=== PATIENT | female | born 1960 | race Caucasian/White ===

== ENCOUNTER → 2023-07-13 06:42 | Day surgery (SDC) | payer OTHER, SELFPAY | LOC: GI 06:42 | PROVIDERS: ATTENDING PHYSICIAN Specialist | DX: R19.7 Diarrhea, unspecified (principal); K57.30 Diverticulosis of large intestine without perforation or abscess without bleeding; D12.0 Benign neoplasm of cecum; D12.5 Benign neoplasm of sigmoid colon; D12.2 Benign neoplasm of ascending colon; D12.3 Benign neoplasm of transverse colon; Z98.0 Intestinal bypass and anastomosis status | CPT/HCPCS: 45385; 45380; 88305 ==

== ENCOUNTER → 2023-08-05 07:51 | Outpatient (REF) | payer OTHER, SELFPAY | LOC: HWRAD 07:51 | PROVIDERS: ATTENDING PHYSICIAN Advanced Practice Midwife; FAMILY PHYSICIAN Family Medicine | DX: N95.0 Postmenopausal bleeding (principal) | CPT/HCPCS: 76830; 76856 ==

== ENCOUNTER → 2023-09-27 07:18 | Outpatient (REF) | payer OTHER, SELFPAY | LOC: MRI 3T 07:18 | PROVIDERS: ATTENDING PHYSICIAN Advanced Practice Midwife; FAMILY PHYSICIAN Family Medicine | DX: N83.202 Unspecified ovarian cyst, left side (principal); R93.89 Abnormal findings on diagnostic imaging of other specified body structures | CPT/HCPCS: 72197; A9575 ==

== ENCOUNTER 2024-05-04 06:17 | Outpatient (RCR) | payer OTHER, SELFPAY | END 2024-05-04 23:59 | disposition home or self-care (01) | LOC: RPT 06:17 | PROVIDERS: ATTENDING PHYSICIAN Family Medicine | DX: M62.838 Other muscle spasm (principal); M76.31 Iliotibial band syndrome, right leg; M76.32 Iliotibial band syndrome, left leg; Z73.6 Limitation of activities due to disability; M54.2 Cervicalgia | CPT/HCPCS: 97010; 97110; 97112; 97140; 97162 ==

== ENCOUNTER 2024-08-09 06:15 | Day surgery (SDC) | payer OTHER, SELFPAY | END 2024-08-09 10:04 | disposition home or self-care (01) | LOC: GI 06:15 | PROVIDERS: ATTENDING PHYSICIAN Specialist | DX: R13.10 Dysphagia, unspecified (principal); R12 Heartburn; K22.70 Barrett's esophagus without dysplasia | CPT/HCPCS: 43239; 88305 ==

== ENCOUNTER 2024-08-14 11:01 | Emergency (ER) | payer OTHER, SELFPAY ==
[2024-08-14 11:02] VITALS: BP 173/100
--- NOTE | 2024-08-14 11:23 | ED.GENMED ---
History of Present Illness
General
Chief Complaint: Chest Pain
Source: patient
Exam Limitations: none
Time Seen by Provider: 08/14/24 11:10
Nursing documentation reviewed up to this point in time: agreed with
History of Present Illness
History of Present Illness:
63-year-old female with history of asthma, HLD, Peters's esophagus, diverticulitis, GERD, cholecystectomy, partial colectomy from diverticulitis, presents for left-sided chest pain, left arm pain that is worse if you squeeze her arm, pain is sharp,
intermittent, sometimes lasts for a minute. This morning she also had pain in the left upper chest as well as the middle of her back. States these pains have been 'off and on' past 2 days. Fleeting sharp left chest pain woke her in middle of night
2 nights ago but she fell back asleep.
Denies n/v/d/c.
Now dull 2/10 left chest discomfort. Has been 'gassy and belching a lot' past 2 days. The belching and flatus have not relieved the chest pain. No aggravating factors, Pain no worse with walking, steps etc.
Saw Cardiology Dr. Dyson 3 days ago for 'weird pain up under her left lower rib cage' was ordered out pt 'tests' '(Nuclear stress test and some kind of ultrasound)' but couldn't get appointments for weeks away
She also had upper endoscopy 5 days ago she states was unremarkable and was told she didn't have to come back for 5 years.
Past History
Past History
ED Past Medical History: GERD and Other (Diverticulosis, Peters's esophagus)
ED Past Surgical History: Cholecystectomy and Other (Breast reduction, colostomy)
Social History
Tobacco: Former smoker
Alcohol: Occasional
Drug: None
Personal:
Living: with family
Employment: Employed
Family History
Family History: Early CAD
Review of Systems
Review of Systems
Allergies reviewed?: Yes
All Other Systems: ROS reviewed and negative except as documented in HPI and ROS
Constitutional: Denies fever or fatigue
Respiratory: Denies trouble breathing
Cardiac: Reports chest pain; Denies diaphoresis or palpitations
ABD/GI: Denies abdominal pain, nausea, vomiting or diarrhea
: Denies dysuria, frequency, difficulty voiding or urgency
Musculoskeletal: Reports no symptoms
Skin: Reports no symptoms
Neurological: Reports no symptoms
Phy Exam
Physical Exam
Physical Exam:
GENERAL: No acute distress. A&Ox3.
CONSTITUTIONAL: Afebrile.
EYES: clear, conjunctivae normal
ENMT: moist mucus membranes, Pharynx nl
RESPIRATORY: Regular respirations, nonlabored, lungs clear.
CARDIOVASCULAR: Regular rate and rhythm, no murmurs, no rubs.
GI: Soft, nontender, normal BS
MUSCULOSKELETAL: Moves with ease. Well perfused. Unable to reproduce chest pain with palpation of the chest wall/ribs
SKIN: Warm, dry, pink
PSYCH: Normal mood and affect. Well kept, interactive and appropriate
NEUROLOGIC: Awake, alert and oriented. No focal neurological deficits
Scores
Heart Score for Chest Pain Patients
STEMI patient?: No
History: Slightly or Non-Suspicious
ECG: Normal
Age: >45 - <65 years
Risk Factors: 1 or 2 Risk Factors
Troponin: </= Normal Limit
Heart Score for Chest Pain Patients: 2
Heart Score Risk: 2.5% MACE over next 6 weeks
Course
Orders/Labs/Results
Orders:
Orders
08/14/24 11:04
Electrocardiogram (*1) Urgent
Reason for Study: Chest Pain
EKG- Treatment ONCE
08/14/24 11:29
Complete Blood Count/With Diff Urgent
Comprehensive Metabolic Panel Urgent
Lipase Urgent
Troponin I Urgent
Abnormal Lab Results
08/14/24
11:29
Absolute Monos (auto) 0.8 H 10^3/uL
(0.1-0.6)
Lymphocytes % 17.0 L %
(20.5-51.1)
Total Bilirubin 1.5 H mg/dl
(0.2-1.3)
08/14/24 11:29
08/14/24 11:29
Vital Signs
Initial and Last Documented VS:
Initial Vital Signs
Temp Pulse Resp BP Pulse Ox
97.7 F 87 20 173/100 98
08/14/24 11:02 08/14/24 11:02 08/14/24 11:02 08/14/24 11:02 08/14/24 11:02
Last Documented Vital Signs
Temp Pulse Resp BP Pulse Ox
97.7 F 66 13 143/78 97
08/14/24 11:02 08/14/24 12:00 08/14/24 12:00 08/14/24 12:00 08/14/24 12:18
MDM/Problems Addressed
Differential Diagnosis Includes:
GERD, [place], musculoskeletal pain
MDM/Problems Addressed:
63-year-old female with history of asthma, HLD, Peters's esophagus, diverticulitis, GERD, cholecystectomy, partial colectomy from diverticulitis, presents for left-sided chest pain, left arm pain that is worse if you squeeze her arm, pain is sharp,
intermittent, sometimes lasts for a minute. This morning she also had pain in the left upper chest as well as the middle of her back. States these pains have been 'off and on' past 2 days. Fleeting sharp left chest pain woke her in middle of night
2 nights ago but she fell back asleep.
Denies n/v/d/c.
Now dull 2/10 left chest discomfort. Has been 'gassy and belching a lot' past 2 days. The belching and flatus have not relieved the chest pain. No aggravating factors, Pain no worse with walking, steps etc.
Saw Cardiology Dr. Dyson 3 days ago for 'weird pain up under her left lower rib cage' was ordered out pt 'tests' '(Nuclear stress test and some kind of ultrasound)' but couldn't get appointments for weeks away
NAD
EKG: NSR
Pt had upper endoscopy 5 days ago, report reviewed: confirmed her short segment Peters's disease but no other findings.
12:20 PM:
CBC normal
CMP normal
Troponin normal
BP 143/78
Heart score: 2
Nothing in workup here today to indicate cardiac etiology of her symptoms.
With the belching and gassiness, may be GERD. Already taking Nexium as prescribed
Pt states she is comfortable going home.
Has appts for Nuclear stress test and echocardiogram in one month.
Has a prescheduled PCP appointment in 2 weeks
*EKG
EKG Intrepretation Date: 08/14/24
Interpretation: normal
Heart Rate: 75
Rate: normal
Rhythm: sinus
[place]: normal axis
Interval: normal interval
QRS Pattern: normal QRS
Ischemia: no ischemia
*Critical Care Note
Total Time (30-74mins, 75-104mins- exclusive of procedures): Not Applicable
ED Attending Note
-
Portions of this chart may have been created with voice recognition software.� Occasional wrong word or��sound alike� substitutions may have occurred due to the inherent limitations of voice recognition software.
Discharge Plan
Departure
Patient Disposition: Home (Routine Discharge)
Date of Disposition: 08/14/24
Time of Disposition: 12:25
Patient with high blood pressure during this ER visit?: No
Condition: Good
Discharge Problem:
Atypical chest pain
Instructions: Chest Pain That Is Not Caused by the Heart (DC), Acid Reflux and GERD in Adults (DC)
Prescriptions:
No Action
esomeprazole magnesium [Nexium] 40 MG capsule,delayed release(DR/EC)
40 mg PO DAILY
aspirin 325 MG tablet,delayed release (DR/EC)
325 mg PO DAILY
albuterol sulfate 1 PUFF HFA aerosol inhaler
1 puff inhalation R Q4HPRN PRN (Reason: sob)
Dulera 13 GM HFA aerosol inhaler
2 puff IH BID
epinephrine [EpiPen 2-Forrest] 0.3 mg/0.3 mL auto-injector
0.3 mg IM Q5-15M PRN (Reason: anaphylaxis) Qty: 2 0RF
Referrals:
Lakisha Rubalcava DO [Family Provider] - Keep scheduled appt
Activity Restrictions/Additional Instructions:
As we discussed, nothing in your workup here today to indicate your symptoms are caused by your heart. Specifically no sign of a heart attack.
Keep your PCP appointment in 2 weeks
Keep your out pt cardiac test appointments.
Interventions
Interventions:
*Risk Screen - Suicide Last Done: 08/14/24 11:04
*General Assessment Last Done: 08/14/24 11:02
*Neglect/Abuse Screening Last Done: 08/14/24 11:02
*Nursing Disposition Last Done: 08/14/24 12:29
ED- Cardiac Assessment Last Done: 08/14/24 11:08
Discharge Date and Time
Discharge Date/Time: 08/14/24 14:34
Print Language: IRISH
[2024-08-14 11:44] LABS: % Basophils 0.9 % (0-2); % Immature Granulocytes 0.4 % (0-0.5); % Monocytes 8.8 % (1.7-9.3); % Neutrophils 70.9 % (42.2-75.2); Absolute Basophils 0.1 10^3/uL (0-0.2); Absolute Eosinophils 0.2 10^3/uL (0-0.7); Absolute Lymphocytes 1.5 10^3/uL (1.2-3.4); Absolute Monocytes 0.8 10^3/uL (0.1-0.6); Absolute Neutrophils 6.4 10^3/uL (1.4-6.5); Hematocrit 41.8 % (37.0-47.0); Mean Corp Hgb Conc. 33.5 g/dL (33.0-37.0); Mean Corpuscular Hgb 28.7 pg (27.0-31.0); Mean Corpuscular Volume 85.8 fL (81.0-99.0); Mean Platelet Volume 9.3 fL (7.4-10.4); Nucleated Red Blood Cells % 0 %; Platelet Count 270 10^3/uL (130-400); Red Blood Cell Count 4.87 10^6/uL (4.20-5.40); White Blood Cell Count 9.1 10^3/uL (4.8-10.8)
[2024-08-14 11:58] LABS: ALT (SGPT) 17 U/L (0-35); AST (SGOT) 18 U/L (14-36); Albumin 4.4 g/dl (3.5-5.0); Alkaline Phosphatase 91 U/L (38-126); Blood Urea Nitrogen 13 mg/dl (7-17); Calcium 9.8 mg/dl (8.4-10.2); Carbon Dioxide 26 mmol/L (22-30); Chloride 107 mmol/L (98-107); Glucose 78 mg/dl (70-99); Potassium 3.6 mmol/L (3.5-5.1); Sodium 142 mmol/L (135-145); Total Bilirubin 1.5 mg/dl (0.2-1.3); eGFR > 60.00
[2024-08-14 12:00] VITALS: BP 143/78
[2024-08-14 12:09] LABS: Troponin I < 0.012 ng/ml
[2024-08-14 12:46] LABS: Lipase 130 U/L (23-300)
== END 2024-08-14 14:34 | disposition home or self-care (01) ==
LOC: EMR 11:01
PROVIDERS: Registered Nurse; EMERGENCY PHYSICIAN Student in an Organized Health Care Education/Training Program; FAMILY PHYSICIAN Family Medicine
DX: R07.89 Other chest pain (principal); M79.602 Pain in left arm; M54.2 Cervicalgia; R42 Dizziness and giddiness; R06.02 Shortness of breath; R14.2 Eructation; J45.909 Unspecified asthma, uncomplicated; K21.9 Gastro-esophageal reflux disease without esophagitis; K22.70 Barrett's esophagus without dysplasia; K57.92 Diverticulitis of intestine, part unspecified, without perforation or abscess without bleeding; Z98.890 Other specified postprocedural states; Z87.891 Personal history of nicotine dependence; Z90.49 Acquired absence of other specified parts of digestive tract; Z88.1 Allergy status to other antibiotic agents; Z88.5 Allergy status to narcotic agent; Z88.8 Allergy status to other drugs, medicaments and biological substances
CPT/HCPCS: 99283; 80053; 83690; 84484; 85025; 93005

== ENCOUNTER → 2024-08-17 11:20 | Outpatient (REF) | payer OTHER, SELFPAY | LOC: RAD 11:20 | PROVIDERS: ATTENDING PHYSICIAN Nurse Practitioner | DX: R10.30 Lower abdominal pain, unspecified (principal) | CPT/HCPCS: 74177; Q9967 ==

== ENCOUNTER 2024-09-01 22:19 | Inpatient (IN) | payer OTHER, SELFPAY ==
[2024-09-01 13:30] VITALS: BP 138/88
[2024-09-01 13:51] LABS: % Basophils 1.1 % (0-2); % Eosinophils 2.9 % (0-6); % Immature Granulocytes 0.3 % (0-0.5); % Lymphocytes 17.4 % (20.5-51.1); % Monocytes 7.6 % (1.7-9.3); % Neutrophils 70.7 % (42.2-75.2); Absolute Basophils 0.1 10^3/uL (0-0.2); Absolute Eosinophils 0.2 10^3/uL (0-0.7); Absolute Lymphocytes 1.3 10^3/uL (1.2-3.4); Absolute Monocytes 0.6 10^3/uL (0.1-0.6); Absolute Neutrophils 5.4 10^3/uL (1.4-6.5); Hematocrit 39.3 % (37.0-47.0); Hemoglobin 13.1 g/dL (12.0-16.0); Mean Corp Hgb Conc. 33.3 g/dL (33.0-37.0); Mean Corpuscular Hgb 28.9 pg (27.0-31.0); Mean Corpuscular Volume 86.6 fL (81.0-99.0); Mean Platelet Volume 9.6 fL (7.4-10.4); Nucleated Red Blood Cells % 0 %; Platelet Count 309 10^3/uL (130-400); Red Blood Cell Count 4.54 10^6/uL (4.20-5.40); Red Cell Dist. Width 12.9 % (11.5-14.5); White Blood Cell Count 7.6 10^3/uL (4.8-10.8)
[2024-09-01 13:59] LABS: ALT (SGPT) 15 U/L (0-35); AST (SGOT) 19 U/L (14-36); Albumin 3.7 g/dl (3.5-5.0); Alkaline Phosphatase 87 U/L (38-126); Blood Urea Nitrogen 8 mg/dl (7-17); Calcium 9.5 mg/dl (8.4-10.2); Carbon Dioxide 26 mmol/L (22-30); Chloride 108 mmol/L (98-107); Glucose 155 mg/dl (70-99); Lipase 94 U/L (23-300); Potassium 4.1 mmol/L (3.5-5.1); Sodium 139 mmol/L (135-145); Total Bilirubin 1.4 mg/dl (0.2-1.3); Total Protein 6.5 g/dl (6.3-8.2); eGFR > 60.00
--- NOTE | 2024-09-01 16:31 | ED.GENMED ---
History of Present Illness
<Sarabjit Marinelli PA-C - Last Filed: 09/01/24 19:38>
General
Chief Complaint: Abdominal Pain
Time Seen by Provider: 09/01/24 16:09
History of Present Illness
History of Present Illness:
Patient is a 63-year-old female with past medical history of asthma, hyperlipidemia, history of Peters's esophagus, diverticulosis with history of colonic resection, and GERD, here today for evaluation of abdominal pain.
Patient was initially seen here on 08/14/2024 for left-sided chest pain/left arm pain. She underwent a workup which was largely unremarkable and ultimately was discharged. She then followed up with her primary care provider in office 3 days later
and an outpatient CT scan of the abdomen and pelvis was ordered as patient newly developed abdominal discomfort. The CT scan revealed new findings suggesting mild acute diverticulitis of the distal sigmoid colon. No perforation or abscess. They
did note limited evaluation without oral contrast was in this area and a mural mass cannot be completely excluded. They recommended a repeat exam following treatment. Patient was ultimately started on Augmentin. She took 10 days in total. After
finishing the medication symptoms began to reappear and patient was given an additional course of medication which she began earlier this week. She reports persistent symptoms. She was told to seek evaluation in the emergency department secondary
to this. No fevers. No vomiting. No other acute complaints.
Past History
<Sarabjit Marinelli PA-C - Last Filed: 09/01/24 19:38>
Past History
ED Past Medical History: GERD and Other (Diverticulosis, Peters's esophagus)
ED Past Surgical History: Cholecystectomy and Other (Breast reduction, colostomy)
Social History
Tobacco: Former smoker
Alcohol: Occasional
Drug: None
Personal:
Living: with family
Employment: Employed
Family History
Family History: Early CAD
Review of Systems
<Sarabjit Marinelli PA-C - Last Filed: 09/01/24 19:38>
Review of Systems
All Other Systems: ROS reviewed and negative except as documented in HPI and ROS
Phy Exam
<Sarabjit Marinelli PA-C - Last Filed: 09/01/24 19:38>
Physical Exam
Physical Exam:
GENERAL: Alert , in no apparent distress
EYE: pupils equal and reactive
NECK: Supple, no significant adenopathy.
ENT: o/p clr, mmm.
CARDIAC: Regular rate and rhythm .
LUNGS: Clear breath sounds bilaterally, no acute respiratory distress, no wheezes/rales/rhonchi
ABDOMEN: Soft, tender along the lower abdomen and middle, no focal tenderness, no rebound or guarding
NEUROLOGICAL: Alert and oriented, no focal neuro deficits
SKIN: Warm and dry, skin intact.
MUSCULOSKELETAL: No edema, well perfused.
PSYCH: Normal and appropriate interaction.
Course
<Sarabjit Marinelli PA-C - Last Filed: 09/01/24 19:38>
Orders/Labs/Results
Orders:
Orders
09/01/24 13:38
Complete Blood Count/With Diff Urgent
Comprehensive Metabolic Panel Urgent
Lipase Urgent
09/01/24 16:53
Iohexol [Omnipaque] See Protocol PO NOW STA
09/01/24 16:54
CT Abd/pel W Iv And Oral Contr Urgent
Comment:
Reason For Exam: abd pain, lower, recent diverticulitis
09/01/24 16:57
Lactic Acid Urgent
Urinalysis Reflex To Culture Urgent
Date Specimen was Collected: 09/01/24
Time Specimen was Collected: 16:43
09/01/24 20:26
Piperacillin/Tazo 4.5 Gram [Zosyn] 4.5 gram in 100 ml IV NOW
Abnormal Lab Results
09/01/24
13:38
Lymphocytes % 17.4 L %
(20.5-51.1)
Chloride 108 H mmol/L
(98-107)
Glucose 155 H mg/dl
(70-99)
Total Bilirubin 1.4 H mg/dl
(0.2-1.3)
09/01/24 13:38
09/01/24 13:38
Vital Signs
Initial and Last Documented VS:
Initial Vital Signs
Temp Pulse Resp BP Pulse Ox
97.6 F 78 16 138/88 97
09/01/24 13:30 09/01/24 13:30 09/01/24 13:30 09/01/24 13:30 09/01/24 13:30
Last Documented Vital Signs
Temp Pulse Resp BP Pulse Ox
97.6 F 65 16 146/78 98
09/01/24 13:30 09/01/24 19:05 09/01/24 19:05 09/01/24 19:07 09/01/24 19:05
<Ronald Garcia Jr., PA-C - Last Filed: 09/01/24 20:46>
Orders/Labs/Results
Orders:
Orders
09/01/24 13:38
Complete Blood Count/With Diff Urgent
Comprehensive Metabolic Panel Urgent
Lipase Urgent
09/01/24 16:53
Iohexol [Omnipaque] See Protocol PO NOW STA
09/01/24 16:54
CT Abd/pel W Iv And Oral Contr Urgent
Comment:
Reason For Exam: abd pain, lower, recent diverticulitis
09/01/24 16:57
Lactic Acid Urgent
Urinalysis Reflex To Culture Urgent
Date Specimen was Collected: 09/01/24
Time Specimen was Collected: 16:43
09/01/24 20:26
Piperacillin/Tazo 4.5 Gram [Zosyn] 4.5 gram in 100 ml IV NOW
Abnormal Lab Results
09/01/24
13:38
Lymphocytes % 17.4 L %
(20.5-51.1)
Chloride 108 H mmol/L
(98-107)
Glucose 155 H mg/dl
(70-99)
Total Bilirubin 1.4 H mg/dl
(0.2-1.3)
09/01/24 13:38
09/01/24 13:38
Vital Signs
Initial and Last Documented VS:
Initial Vital Signs
Temp Pulse Resp BP Pulse Ox
97.6 F 78 16 138/88 97
09/01/24 13:30 09/01/24 13:30 09/01/24 13:30 09/01/24 13:30 09/01/24 13:30
Last Documented Vital Signs
Temp Pulse Resp BP Pulse Ox
97.6 F 65 16 146/78 98
09/01/24 13:30 09/01/24 19:05 09/01/24 19:05 09/01/24 19:07 09/01/24 19:05
<Sarabjit Marinelli PA-C - Last Filed: 09/01/24 19:38>
MDM/Problems Addressed
Differential Diagnosis Includes:
Patient is a 63-year-old female with past medical history of asthma, hyperlipidemia, history of Peters's esophagus, diverticulosis with history of colonic resection, and GERD, here today for evaluation of abdominal pain. Overall, patient appears
very well. Vital signs grossly within normal limits. Physical examination described above. We will repeat screening labs as well as CT scan of the abdomen and pelvis with IV and oral contrast. Will order urinalysis.
<Ronald Garcia Jr., PA-C - Last Filed: 09/01/24 20:46>
*Critical Care Note
Total Time (30-74mins, 75-104mins- exclusive of procedures): Not Applicable
<Ronald Garcia Jr., PA-C - Last Filed: 09/01/24 20:46>
Update Note
Update Note:
2044: Ed Garcia. Care transitioned with CT pending. Patient was found to have severe diverticulitis on CT scan. Patient was on appropriate outpatient management but did failed this management concerning this plan to admit with IV antibiotics. In
no distress at time of reassessment.
ED Attending Note
<Sarabjit Marinelli PA-C - Last Filed: 09/01/24 19:38>
-
Portions of this chart may have been created with voice recognition software.� Occasional wrong word or��sound alike� substitutions may have occurred due to the inherent limitations of voice recognition software.
Discharge Plan
Departure
Patient Disposition: Admit
Date of Disposition: 09/01/24
Time of Disposition: 20:46
Admit to: Med/Surg
Admit to doctor: Pete
Presentation/result/management discussed w/ accepting MD/DO: Hospitalist
Patient with high blood pressure during this ER visit?: No
Condition: Good
Covid-19: Not Applicable
Discharge Problem:
Diverticulitis
Prescriptions:
No Action
esomeprazole magnesium [Nexium] 40 MG capsule,delayed release(DR/EC)
40 mg PO DAILY
aspirin 325 MG tablet,delayed release (DR/EC)
325 mg PO DAILY
albuterol sulfate 1 PUFF HFA aerosol inhaler
1 puff inhalation R Q4HPRN PRN (Reason: sob)
Dulera 13 GM HFA aerosol inhaler
2 puff IH BID
epinephrine [EpiPen 2-Forrest] 0.3 mg/0.3 mL auto-injector
0.3 mg IM Q5-15M PRN (Reason: anaphylaxis) Qty: 2 0RF
Referrals:
Lakisha Rubalcava DO [Family Provider] -
Interventions
Interventions:
*Risk Screen - Suicide Last Done: 09/01/24 13:30
*General Assessment Last Done: 09/01/24 16:44
*Neglect/Abuse Screening Last Done: 09/01/24 13:30
*ED- Fall Risk Assessment Last Done: 09/01/24 16:44
*ED COVID-19 Vaccine History Last Done: 09/01/24 16:44
SW-Ewzwui-Mthajgxavs Assessment Last Done: 09/01/24 16:50
Discharge Date and Time
Print Language: UKRAINIAN
[2024-09-01 16:43] VITALS: BMI 29.8
[2024-09-01 16:50] VITALS: BP 137/69
[2024-09-01 17:07] LABS: Urine Albumin Negative (Neg - Trace); Urine Bilirubin Negative (Negative); Urine Character Clear (Clear); Urine Color Yellow; Urine Glucose Negative (Negative); Urine Ketone Negative (Negative); Urine Leukocyte Negative (Negative); Urine Nitrite Negative (Negative); Urine Occult Blood Negative (Negative); Urine Urobilinogen Negative (Neg - 1+)
[2024-09-01] MEDS: OMNIPAQUE 50 ML PO (17:07)
[2024-09-01 17:16] LABS: Lactic Acid 1.5 mmol/L (0.7-2.0)
[2024-09-01 19:07] VITALS: BP 146/78
[2024-09-01] MEDS: ZOSYN 100 IV (21:12)
--- NOTE | 2024-09-01 21:23 | W.PN.UPDATE ---
Update Note
Progress Note Update
Patient seen in conjunction with BEAUTY OPERATOR. I agree with the findings and physical. I concur with the assessment plan listed otherwise.
Briefly, this is a 63-year-old female with past medical history of asthma, hyperlipidemia, history of Peters's esophagus, recurrent diverticulitis with history of colonic resection, and GERD who presented to the emergency department with abdominal
pain. She had outpatient CT scan of the abdomen and pelvis was ordered as patient newly developed abdominal discomfort around August 17 which showed mild acute diverticulitis of the distal sigmoid colon. No perforation or abscess. Patient was
ultimately started on Augmentin. She took 10 days in total. After finishing the medication symptoms began to reappear and patient was given an additional course of medication which she began earlier this week. She reports persistent symptoms.
Here in the emergency department she was afebrile, blood pressure 146/78 with a pulse of 65.
CBC was unremarkable stop electrolytes BUN/creatinine were all in the normal range. LFTs were normal.
A CT of the abdomen pelvis shows extensive stranding and edema along the colon at the hepatic flexure consistent with severe diverticulitis. There is no definite perforation or pericolonic abscess.
Assesment and plan
Severe Diverticulitis - Failure of outpatient abx. HD stable. Afebrile. Extensive area of edema. No perforation. No abscess. Non-toxic appearing and exam benign
- admit to med/surg
- npo for now, ADAT
- dextrose containing iv fluids
- start zosyn q 6 hours
- serial examinations, no surgical indication at this time
- cultures if spike
DVT PPX - lovenox sq
Code status - full code
--- NOTE | 2024-09-01 21:45 | HPS.HSE ---
Family Physician
-
Family Physician: Lakisha Rubalcava
Chief Complaint
-
Abdominal Pain
History of Present Illness
Patient is a 63 y/o female past medical history of asthma, GERD/Peters's Esophagus, recurrent diverticulitis s/p sigmoidectomy who presents with abdominal pain. Patient had a CT scan on August 17 which revealed diverticulitis for which she was
started on Augmentin. Patient reports towards the end of the 10 days coarse she was starting to feel improved, however after finishing the antibiotics her symptoms quickly returned. She reports pain mostly in the upper abdominal area. She reports
a few episodes of diarrhea about 5-6 days ago but notes that is now resolved. She denies fevers, sweats or chills. Patient had prior sigmoidectomy for recurrent diverticulitis in 2016 and reports no episodes of diverticulitis until this recent
episode. She follows closely with GI and had a colonoscopy a year ago, and an upper endoscopy in July.
Medical History
Past Medical History
Past Medical History: Reports Other
Additional Past Medical History:
GERD / Peters's Esophagus
Diverticulitis
Asthma
Hyperlipidemia
Past Surgical History: Reports Other
Additional Past Surgical History:
Cholecystectomy
Sigmoidectomy
Breast Reduction
Social History
Tobacco: Former Smoker
Alcohol: Occasional
Family History
Family History: Not pertinent
Allergies / Home Medications
Allergies reflects when Allergies were last updated in [facility].
Home Medications with original date entered in [facility]
Allergy/Medication List:
Allergies
Allergy/AdvReac Type Severity Reaction Status Date / Time
codeine Allergy Intermediate severe Verified 09/01/24 13:35
constipation
levofloxacin [From Levaquin] Allergy Intermediate Unknown Verified 09/01/24 13:35
moxifloxacin [From Avelox] Allergy Intermediate Rash Verified 09/01/24 13:35
metronidazole [From Flagyl] Allergy Unknown Verified 09/01/24 13:35
shiraz inhibitor Allergy Unknown Uncoded 09/01/24 13:35
Home Medications
esomeprazole magnesium 40 mg capsule,delayed release (Nexium) 40 mg PO DAILY 02/06/13
albuterol sulfate 90 mcg/actuation aerosol inhaler 2 puff inhalation R Q4HPRN PRN sob 01/11/21
famotidine 10 mg tablet (Pepcid AC) 10 mg PO HS 09/01/24
mometasone-formoterol HFA 200 mcg-5 mcg/actuation aerosol inhaler (Dulera) 2 puff inhalation BID 09/01/24
rosuvastatin 10 mg tablet 10 mg PO HS 09/01/24
Review of Systems
-
A 12 point ROS was completed and negative except as noted: Yes
Constitutional: Denies Fever or Chills
Respiratory: Denies Cough or Trouble Breathing
Cardiac: Denies Chest Pain or Palpitations
Abdomen/GI: Reports See HPI
Physical Exam
Vital Signs
Vital Signs
Temp Pulse Resp BP Pulse Ox
97.6 F 65 16 146/78 98
09/01/24 13:30 09/01/24 19:05 09/01/24 19:05 09/01/24 19:07 09/01/24 19:05
Physical Exam
General: Comfortable and Conversant
HEENT: Anicteric and Moist mucous membranes
Respiratory: Clear and Non Labored Respirations
Cardiac: S1/S2 and Regular Rhythm
GI: Soft and Tender (Mild upper regions with rebound or guarding)
Rectal: Deferred by Provider
Musculoskeletal: No Clubbing, No Cyanosis and No Edema
Skin: Warm and Dry
Neuro: Awake, Alert, Oriented and Nonfocal/grossly intact
Psych: Calm
Laboratory Results
-
09/01/24 13:38
09/01/24 13:38
Laboratory Results
Lactic Acid 1.5 mmol/L (0.7-2.0) 09/01/24 16:57
Total Bilirubin 1.4 mg/dl (0.2-1.3) H 09/01/24 13:38
AST 19 U/L (14-36) 09/01/24 13:38
ALT 15 U/L (0-35) 09/01/24 13:38
Alkaline Phosphatase 87 U/L (38-126) 09/01/24 13:38
Lipase 94 U/L (23-300) 09/01/24 13:38
Data Reviewed
-
CT Scan: Report Reviewed by me
Lab Data: Labs Reviewed by me
Impression/Plan
-
Diverticulitis, failed outpatient oral antibiotics
-Continue Zosyn
-Continue NPO/IVFS
GERD / Peters's Esophagus
-Continue Pepcid and Protonix
Asthma, no acute exacerbation
-Continue Dulera
Hyperlipidemia
-Continue Crestor
DVT proph: SCDs
Code Status: Full Code
[2024-09-01 22:39] VITALS: BMI 28.3
[2024-09-01] MEDS: PEPCID 10 MG PO (23:10)
[2024-09-01] MEDS: CRESTOR 10 MG PO (23:10)
[2024-09-01] MEDS: D5/0.45%NSS with KCL 10 MEQ 1000 IV (23:11)
[2024-09-01 23:34] VITALS: BP 149/91; BMI 28.1
[2024-09-02] MEDS: ZOSYN 50 IV ×4 (04:17→21:00)
[2024-09-02 06:00] VITALS: BMI 28.1
[2024-09-02] MEDS: SYMBICORT 160/4.5 MCG INHALER 2 PUFF INH ×2 (07:30→20:14)
[2024-09-02 07:32] VITALS: BP 121/63
[2024-09-02 07:58] LABS: Hematocrit 34.9 % (37.0-47.0); Hemoglobin 11.8 g/dL (12.0-16.0); Mean Corp Hgb Conc. 33.8 g/dL (33.0-37.0); Mean Corpuscular Volume 85.7 fL (81.0-99.0); Mean Platelet Volume 9.7 fL (7.4-10.4); Platelet Count 279 10^3/uL (130-400); Red Blood Cell Count 4.07 10^6/uL (4.20-5.40); Red Cell Dist. Width 12.8 % (11.5-14.5)
[2024-09-02] MEDS: PROTONIX 40 MG PO (08:12)
[2024-09-02 08:35] LABS: Blood Urea Nitrogen 4 mg/dl (7-17); Calcium 8.8 mg/dl (8.4-10.2); Carbon Dioxide 26 mmol/L (22-30); Chloride 111 mmol/L (98-107); Estimated Creatinine Clearance 104 ml/min; Glucose 108 mg/dl (70-99); Magnesium 1.8 mg/dl (1.6-2.3); Potassium 3.8 mmol/L (3.5-5.1); Sodium 141 mmol/L (135-145); eGFR > 60.00
[2024-09-02] MEDS: TORADOL 10 MG IV (08:51)
[2024-09-02] MEDS: D5/0.45%NSS with KCL 10 MEQ 1000 IV ×2 (08:52→19:52)
[2024-09-02 12:40] VITALS: BMI 28.1
--- NOTE | 2024-09-02 12:46 | CON.CRS ---
Addendum entered and electronically signed by Wan Pruett MD 09/02/24 13:39:
I saw and examined the patient independently.
The Media Services Coordinator's note was reviewed and I agree with the note, assessment and plan except where noted below.
Comment: This is a 63-year-old female with a history of diverticulitis status post laparoscopic sigmoidectomy (2017, [facility]) who has been in her usual state of health but had a recurrence of diverticulitis seen on CT scan from 08/17/2024 which was
mild and managed with outpatient antibiotics. She presented yesterday with recurrence of her abdominal pain and loose stools. A repeat CT scan demonstrated uncomplicated diverticulitis at this time interestingly at the hepatic flexure. There is
no abscess or collection. Her blood work and exam are reassuring.
Continue with IV antibiotics
Okay for clears
No urgent surgical intervention warranted at this point.
General surgery will continue to follow, colorectal surgery to take over on Wednesday.
Patient agreeable to plan of care above, all questions answered.
Original Note:
Consultation
-
Date/Time Consultation Performed: 09/02/24 at 1150
Medical History
-
Chief Complaint: diarrhea, abdominal pain
History of Present Illness:
Ms Gupta is a 63 yo female with a h/o diverticulitis with previous lap sigmoidectomy done for recurrence in 2017 at [facility]. She was doing well since that time without recurrence until recently when late last month she developed
similar symptoms to her prior episodes and was started on an antibiotic as an outpatient for 10 day course after outpatient CT imaging demonstrated diverticulitis on 08/17/24. She initially was doing well, but notes that as soon as the antibiotic was
completed, she began to have pain in her lower abdomen once again with loose stools. She denies hematochezia. She notes chills at home but no fevers. On exam, her abdomen is without distention and only minimal tenderness to the lower abdomen.
Past Medical History
Past Medical History: Diverticulitis, GERD (Peters's ) and Hypercholesterolemia
Past Surgical History: Bowel Resection (Lap sigmoidectomy 2016), Cholecystectomy, Gynecological (breast reduction) and Other (EGD 07/2024, Colonoscopy 06/2023 with polyps/diverticulosis present)
Social History
Tobacco: Former Smoker
Alcohol: Occasional
Family History
Family History: Reviewed & Not Pertinent
Allergies / Home Medications
Allergy/AdvReac Type Severity Reaction Status Date / Time
MOSES Inhibitors Allergy Unknown Verified 09/01/24 21:51
codeine Allergy severe Verified 09/01/24 21:51
constipation
levofloxacin [From Levaquin] Allergy Unknown Verified 09/01/24 21:51
metronidazole [From Flagyl] Allergy Unknown Verified 09/01/24 13:35
moxifloxacin [From Avelox] Allergy Rash Verified 09/01/24 21:51
�Medication �Instructions �Recorded �Confirmed �Type
esomeprazole magnesium 40 mg 40 mg PO DAILY 02/06/13 09/01/24 History
capsule,delayed release (Nexium)
albuterol sulfate 90 mcg/actuation 2 puff inhalation R Q4HPRN PRN sob 01/11/21 09/01/24 History
aerosol inhaler
famotidine 10 mg tablet (Pepcid AC) 10 mg PO HS 09/01/24 09/01/24 History
mometasone-formoterol HFA 200 2 puff inhalation BID 09/01/24 09/01/24 History
mcg-5 mcg/actuation aerosol
inhaler (Dulera)
rosuvastatin 10 mg tablet 10 mg PO HS 09/01/24 09/01/24 History
Review of Systems
-
History Source: Patient
All other systems: Negative unless noted
A 10 point review of systems was completed, and was negative except as per HPI.
Physical Exam
Vital Signs
Temp 98.7 F 09/02/24 07:32
Pulse 78 09/02/24 07:34
Resp Rate 14 09/02/24 07:34
Blood pressure 121/63 09/02/24 07:32
SaO2 97 09/02/24 08:00
09/01/24 09/02/24 09/03/24
06:59 06:59 06:59
Actual Weight 81.193 kg
Body Mass Index (BMI) 28.1
Lab Results / Allergies
09/02/24 07:20
09/02/24 07:20
WBC 6.0 10^3/uL (4.8-10.8) 09/02/24 07:20
Hgb 11.8 g/dL (12.0-16.0) L 09/02/24 07:20
Hct 34.9 % (37.0-47.0) L 09/02/24 07:20
Plt Count 279 10^3/uL (130-400) 09/02/24 07:20
Abs Immat Gran (auto) 0.0 10^3/uL (0-0.05) 09/01/24 13:38
Neutrophils % 70.7 % (42.2-75.2) 09/01/24 13:38
Allergy/AdvReac Type Severity Reaction Status Date / Time
MOSES Inhibitors Allergy Unknown Verified 09/01/24 21:51
codeine Allergy severe Verified 09/01/24 21:51
constipation
levofloxacin [From Levaquin] Allergy Unknown Verified 09/01/24 21:51
metronidazole [From Flagyl] Allergy Unknown Verified 09/01/24 13:35
moxifloxacin [From Avelox] Allergy Rash Verified 09/01/24 21:51
Physical Exam
General: Well Developed and Comfortable
HEENT: Moist Mucous Membranes
Respiratory: Non Labored Respirations
GI: Soft, Non Distended and Tender (lower abd)
Skin: Warm and Dry
Neuro: Awake, Alert and AO x 3
Data Reviewed
-
CT Scan: Image Personally Visualized and interpreted, Report Reviewed by me, Discussed with Physician and Discussed with Patient
Labs: Labs Reviewed by me, Discussed with Physician and Discussed with Patient
Old Records: Reviewed
Assessment / Plan
-
Ms Gupta is a 63 yo female with a h/o diverticulitis with previous lap sigmoidectomy done for recurrence in 2017 at [facility]. She was doing well since that time without recurrence until recently when late last month she developed
similar symptoms to her prior episodes and was started on an antibiotic as an outpatient for 10 day course after outpatient CT imaging demonstrated diverticulitis on 08/17/24. She completed a 10 day course of abx but presents with recurrent symptoms
of pain and diarrhea.
CT imaging reviewed and consistent with diverticulitis near the hepatic flexure. No abscess or evidence of perforation. No leukocytosis. No fevers, VSS. Pain improved with IV abx
--C/W IV ABX
--Trial of clears
--Analgesics prn
--No plans for emergent surgery at this point, will follow for continued improvement with medical management
--- NOTE | 2024-09-02 13:52 | W.PN.HOSP.TC ---
Today's Communication/Plan
-
clears
Follow
Assessment / Plan
Assessment / Plan
63-year-old female presented with abdominal pain she had a CT on August 17 and was treated with Augmentin she improved towards end of the course however pain returned. Had diarrhea 5 to [address]- There is extensive stranding and edema along the colon at the hepatic flexure consistent with severe diverticulitis. There is no definite perforation or pericolonic abscess.Prior cholecystectomy
There is stable prominence of the bilateral ovaries likely secondary to bilateral ovarian fibromas as seen on prior MRI.
CVS: S1-S2 normal
Chest: CTA B/L
Abdomen: Soft, NT , Bowel sounds present
Extremities: No edema
# Diverticulitis -failed outpatient oral antibiotics
Continue Zosyn, ( Allergy to Flagyl and Levaquin)
Continue n.p.o. with IV fluids and pain control
Colonoscopy 07/13/23-Polyps in sigmoid colon, cecum, distal transverse colon and ascending colon, diverticulosis in the sigmoid colon descending colon and transverse colon, end-to-end colocolonic anastomosis
History of partial colectomy for diverticulitis
Symptoms better,
Clears started
Colorectal eval.
# Hyperlipidemia-continue Crestor
# Asthma without exacerbation-continue Dulera or equivalent
# GERD/Peters's esophagus- Gets periodic endoscopy (Last 08/09/24). Continue Pepcid and Protonix
# DVT prophylaxis-Lovenox
# Full code
Discussed with nursing
Anticipated Discharge: 24 - 48 hours
Subjective/Interval History
-
Date of Service: September 02, 2024
Objective Data
-
Labs:
Laboratory Results
09/02/24
07:20
WBC 6.0
Hgb 11.8 L
Hct 34.9 L
Plt Count 279
Sodium 141
Potassium 3.8
Chloride 111 H
Carbon Dioxide 26
BUN 4 L
Creatinine 0.6
Glucose 108 H
Calcium 8.8
Vital Signs:
Vital Signs
Temp Pulse Resp BP Pulse Ox
98.7 F 78 14 121/63 97
09/02/24 07:32 09/02/24 07:34 09/02/24 07:34 09/02/24 07:32 09/02/24 08:00
--- NOTE | 2024-09-02 15:14 | CM ---
Initial assessment completed with pt at bedside.
Pt is a 63yr old admitted with unresolved Diverticulitis.
At baseline, pt lives with her in a 2 story home with 1 step to enter. Her bedroom and full bath are on the 2nd floor.
Pt is indep at baseline with no current/hx of equipment/VN/SNF
PCP; Lakisha Rubalcava
Pharm; DAVID Ann
PLAN; dc to home with no needs anticipated
[2024-09-02 15:32] VITALS: BP 141/81
[2024-09-02] MEDS: LOVENOX 40 MG SC (17:11)
[2024-09-02] MEDS: PEPCID 10 MG PO (21:00)
[2024-09-02] MEDS: CRESTOR 10 MG PO (21:01)
[2024-09-02 23:10] VITALS: BP 140/77
[2024-09-03] MEDS: ZOSYN 50 IV ×4 (03:18→21:11)
[2024-09-03 05:59] VITALS: BMI 28.4
[2024-09-03] MEDS: D5/0.45%NSS with KCL 10 MEQ 1000 IV (07:14)
[2024-09-03] MEDS: PROTONIX 40 MG PO (07:15)
[2024-09-03 07:38] VITALS: BP 161/97
[2024-09-03] MEDS: SYMBICORT 160/4.5 MCG INHALER 2 PUFF INH ×2 (07:40→20:52)
[2024-09-03 07:52] LABS: Hematocrit 34.4 % (37.0-47.0); Hemoglobin 11.6 g/dL (12.0-16.0); Mean Corp Hgb Conc. 33.7 g/dL (33.0-37.0); Mean Corpuscular Hgb 29.1 pg (27.0-31.0); Mean Corpuscular Volume 86.4 fL (81.0-99.0); Mean Platelet Volume 9.7 fL (7.4-10.4); Platelet Count 280 10^3/uL (130-400); Red Blood Cell Count 3.98 10^6/uL (4.20-5.40); Red Cell Dist. Width 12.7 % (11.5-14.5); White Blood Cell Count 5.4 10^3/uL (4.8-10.8)
[2024-09-03 08:11] LABS: Blood Urea Nitrogen 3 mg/dl (7-17); Calcium 8.8 mg/dl (8.4-10.2); Carbon Dioxide 24 mmol/L (22-30); Chloride 112 mmol/L (98-107); Estimated Creatinine Clearance 90 ml/min; Glucose 92 mg/dl (70-99); Potassium 3.9 mmol/L (3.5-5.1); Sodium 142 mmol/L (135-145); eGFR > 60.00
--- NOTE | 2024-09-03 12:30 | W.PN.HOSP.TC ---
Today's Communication/Plan
-
Full Liquids
OK to stiop IVF
Assessment / Plan
Assessment / Plan
63-year-old female presented with abdominal pain she had a CT on August 17 and was treated with Augmentin she improved towards end of the course however pain returned. Had diarrhea 5 to [address]- There is extensive stranding and edema along the colon at the hepatic flexure consistent with severe diverticulitis. There is no definite perforation or pericolonic abscess.Prior cholecystectomy
There is stable prominence of the bilateral ovaries likely secondary to bilateral ovarian fibromas as seen on prior MRI.
CVS: S1-S2 normal
Chest: CTA B/L
Abdomen: Soft, mild left lower quadrant discomfort with palpation,Bowel sounds present
Extremities: No edema
# Diverticulitis -failed outpatient oral antibiotics
Continue Zosyn, ( Allergy to Flagyl and Levaquin)
Continue n.p.o. with IV fluids and pain control
Colonoscopy 07/13/23-Polyps in sigmoid colon, cecum, distal transverse colon and ascending colon, diverticulosis in the sigmoid colon descending colon and transverse colon, end-to-end colocolonic anastomosis
History of partial colectomy for diverticulitis
Symptoms better,
Full Liquids started
She had a formed BM today
Colorectal eval.
# Hyperlipidemia-continue Crestor
# Asthma without exacerbation-continue Dulera or equivalent
# GERD/Peters's esophagus- Gets periodic endoscopy (Last 08/09/24). Continue Pepcid and Protonix
# DVT prophylaxis-Lovenox
# Full code
Discussed with nursing
Anticipated Discharge: Within 24 hours
Subjective/Interval History
-
Date of Service: September 03, 2024
Objective Data
-
Labs:
Laboratory Results
09/03/24
07:20
WBC 5.4
Hgb 11.6 L
Hct 34.4 L
Plt Count 280
Sodium 142
Potassium 3.9
Chloride 112 H
Carbon Dioxide 24
BUN 3 L
Creatinine 0.7
Glucose 92
Calcium 8.8
Vital Signs:
Vital Signs
Temp Pulse Resp BP Pulse Ox
98.9 F 70 14 161/97 96
09/03/24 07:38 09/03/24 07:45 09/03/24 07:45 09/03/24 07:38 09/03/24 07:45
I&O
09/02/24 09/03/24 09/04/24
06:59 06:59 06:59
Intake Total 3690 / 3690
Balance 3690 / 3690
--- NOTE | 2024-09-03 12:31 | W.PN.CRS1 ---
Today's Communication / Plan
-
LRD
Assessment/Plan
-
63 yo female with h/o diverticulitis with lap sigmoidectomy done for recurrence in 2017 and recent episode 3 weeks ago treated with PO abx as an outpatient who presents with recurrent symptoms. CT with noted diverticulitis near the hepatic flexure.
Improving with IV abx.
AFVSS
No leukocytosis
--Advance to LRD
--Continue IV abx
--Follow as inpatient for continued improvement
Subjective Data
Subjective Data
Date of Service: September 03, 2024
Patient seen and examined at bedside with Dr. Philip. Dudley n/v. Passing flatus. Tolerating diet. Some bubbling pain up the middle of her abdomen.
Objective Data
-
Vital Signs
Temp Pulse Resp BP Pulse Ox
98.9 F 70 14 161/97 96
09/03/24 07:38 09/03/24 07:45 09/03/24 07:45 09/03/24 07:38 09/03/24 07:45
Intake & Output
09/02/24 09/03/24 09/04/24
06:59 06:59 06:59
Intake Total 3690 / 3690
Balance 3690 / 3690
Intake:
Oral fluids 1440 / 1440
IV fluids (Total) 2100 / 2100
IV piggybacks 150 / 150
Other:
Number of approximated MODERATE 1 2
amounts of urine
Number of approximated LARGE 1
amounts of urine
Lab Results
09/03/24 07:20
09/03/24 07:20
Physical Exam
-
General: No Acute Distress and Mild Distress
Abdomen: Soft, Non Distended and Tender (mild to the right upper abd)
Skin: Warm and Dry
[2024-09-03 14:48] VITALS: BP 140/84
[2024-09-03 15:58] LABS: Glucose - Point of Care 79 mg/dl (70-99)
[2024-09-03] MEDS: LOVENOX 40 MG SC (17:04)
[2024-09-03] MEDS: CRESTOR 10 MG PO (21:11)
[2024-09-03] MEDS: PEPCID 10 MG PO (21:11)
[2024-09-03 22:45] VITALS: BP 149/89
[2024-09-04] MEDS: ZOSYN 50 IV ×2 (03:58→09:28)
[2024-09-04 06:00] VITALS: BMI 28.2
[2024-09-04 07:34] VITALS: BP 124/75
[2024-09-04 07:39] LABS: Hematocrit 37.1 % (37.0-47.0); Hemoglobin 12.4 g/dL (12.0-16.0); Mean Corp Hgb Conc. 33.4 g/dL (33.0-37.0); Mean Corpuscular Hgb 28.8 pg (27.0-31.0); Mean Corpuscular Volume 86.1 fL (81.0-99.0); Mean Platelet Volume 9.4 fL (7.4-10.4); Platelet Count 275 10^3/uL (130-400); Red Blood Cell Count 4.31 10^6/uL (4.20-5.40); Red Cell Dist. Width 12.6 % (11.5-14.5); White Blood Cell Count 5.9 10^3/uL (4.8-10.8)
[2024-09-04] MEDS: SYMBICORT 160/4.5 MCG INHALER 2 PUFF INH (07:48)
[2024-09-04] MEDS: PROTONIX 40 MG PO (08:09)
--- NOTE | 2024-09-04 09:55 | W.PN.CRS1 ---
Today's Communication / Plan
-
Disposition per hospitalist.
Assessment/Plan
-
Hepatic flexure diverticulitis.
1. tolerating LRD with minimal discomfort and normal WBC.
2. disposition per hospitalist.
3. following up with Dr. Segura in a few weeks. No need for CR followup.
Subjective Data
Subjective Data
Date of Service: September 04, 2024
Denies pain.
Tolerating LRD.
Objective Data
-
Vital Signs
Temp Pulse Resp BP Pulse Ox
98.5 F 69 14 124/75 96
09/04/24 07:34 09/04/24 07:51 09/04/24 07:51 09/04/24 07:34 09/04/24 07:51
Intake & Output
09/03/24 09/04/24 09/05/24
06:59 06:59 06:59
Intake Total 3690 / 3690 1200 / 1200
Balance 3690 / 3690 1200 / 1200
Intake:
Oral fluids 1440 / 1440 1200 / 1200
IV fluids (Total) 2099 / 2099
IV piggybacks 150 / 150
Other:
Number of approximated MODERATE 2 3
amounts of urine
Lab Results
09/04/24 07:03
Physical Exam
-
General: No Acute Distress
Chest: Clear
Cardiovascular: Regular Rate & Rhythm
Abdomen: Non Distended and Tender (minimal)
[2024-09-04 10:23] LABS: Blood Urea Nitrogen 6 mg/dl (7-17); Calcium 8.8 mg/dl (8.4-10.2); Carbon Dioxide 23 mmol/L (22-30); Chloride 108 mmol/L (98-107); Estimated Creatinine Clearance 89 ml/min; Glucose 96 mg/dl (70-99); Potassium 3.6 mmol/L (3.5-5.1); Sodium 140 mmol/L (135-145); eGFR > 60.00
--- NOTE | 2024-09-04 11:54 | W.PN.HOSP.TC ---
Addendum entered and electronically signed by Hoang Clancy MD 09/04/24 17:08:
Dictation- [id number]
Original Note:
Today's Communication/Plan
-
Discharge with OP Infusion
Assessment / Plan
Assessment / Plan
63-year-old female presented with abdominal pain she had a CT on August 17 and was treated with Augmentin she improved towards end of the course however pain returned. Had diarrhea 5 to 6 days QA INTERN.
CT- There is extensive stranding and edema along the colon at the hepatic flexure consistent with severe diverticulitis. There is no definite perforation or pericolonic abscess.Prior cholecystectomy
There is stable prominence of the bilateral ovaries likely secondary to bilateral ovarian fibromas as seen on prior MRI.
CVS: S1-S2 normal
Chest: CTA B/L
Abdomen: Soft, NT, Bowel sounds present
Extremities: No edema
# Diverticulitis -failed outpatient oral antibiotics
On Zosyn, ( Allergy to Flagyl and Levaquin)
Tolerating LRD
Colonoscopy 07/13/23-Polyps in sigmoid colon, cecum, distal transverse colon and ascending colon, diverticulosis in the sigmoid colon descending colon and transverse colon, end-to-end colocolonic anastomosis
History of partial colectomy for diverticulitis
Symptoms better.
She had a formed BM yesterday
Colorectal eval appreciated
Options limited we she failed OP Augmentin , CT showing severe diverticulitis, (H/O Bowel resection) . She does not want to try Flagyl again due to side effects.
Agrees for OP IV
# Hyperlipidemia-continue Crestor
# Asthma without exacerbation-continue Dulera or equivalent
# GERD/Peters's esophagus- Gets periodic endoscopy (Last 08/09/24). Continue Pepcid and Protonix.
# DVT prophylaxis-Lovenox
# Full code
Discussed with nursing
Called PCP office and spoke to Dr. Rubalcava re antibiotic allergies.
Flagyl has Nausea Listed as allergy.
Discussed with pt choices with out Flagyl are limited . She does not want to try Flagyl as she is afraid of side effects. She failed Augmentin as outpatient will do antibiotics with an end date of 09/10/2024
Discussed alternative will be Ertapenem daily for a week with Mid line. ( explained to Pt)
Patient wants to come to the infusion room for antibiotics.
Discussed with case management that patient has coverage for IV infusion as outpatient
Information to be given regarding antibiotics as well as urology tried
Prescription given to case management
More than 30 minutes spent in discharge including
Final examination of the patient
Summarizing hospital stay
Instructions for continuing care to all relevant caregivers
Preparation of discharge records, prescriptions, and referral forms
Total time spent (in minutes): 40 min
Anticipated Discharge: Today
Subjective/Interval History
-
Date of Service: September 04, 2024
Objective Data
-
Labs:
Laboratory Results
09/04/24
07:03
WBC 5.9
Hgb 12.4
Hct 37.1
Plt Count 275
Sodium 140
Potassium 3.6
Chloride 108 H
Carbon Dioxide 23
BUN 6 L
Creatinine 0.7
Glucose 96
Calcium 8.8
Vital Signs:
Vital Signs
Temp Pulse Resp BP Pulse Ox
98.5 F 69 14 124/75 99
09/04/24 07:34 09/04/24 07:51 09/04/24 07:51 09/04/24 07:34 09/04/24 08:10
I&O
09/03/24 09/04/24 09/05/24
06:59 06:59 06:59
Intake Total 3690 / 3690 1200 / 1200
Balance 3690 / 3690 1200 / 1200
[2024-09-04] MEDS: INVANZ 60 MG IV (13:33)
--- NOTE | 2024-09-04 14:46 | CM ---
Addendum entered by Shannan Mcmahan 09/04/24 15:53:
Per [place]/ OP infusion, all documents received. Patient has spot tomorrow at 2:30 pm.
Spouse will transport home
Original Note:
Per hospitalist, patient will need additional IV abx for a week. Patient prefers to receive abx dose via OP at the infusion center
CM faxed script, reaction form and H&P to OP infusion center ([phone])
Patient is stable for d/c today and can receive abx dose tomorrow at center
Midline ordered to be placed prior to d/c
Plan: Home w/ IV abx at OP Infusion Center
[2024-09-04 15:08] VITALS: BP 153/85
== END 2024-09-04 16:11 | disposition home or self-care (01) | DRG 392 ==
LOC: 4 WEST ACU 22:19
PROVIDERS: Emergency Medicine; Physician Assistant; Physician Assistant Medical; Registered Nurse; ADMITTING PHYSICIAN Internal Medicine; ATTENDING PHYSICIAN Hospitalist; EMERGENCY PHYSICIAN Emergency Medicine; FAMILY PHYSICIAN Family Medicine; OTHER PHYSICIAN Surgery
DX: K57.32 Diverticulitis of large intestine without perforation or abscess without bleeding (principal); K21.9 Gastro-esophageal reflux disease without esophagitis; K22.70 Barrett's esophagus without dysplasia; J45.909 Unspecified asthma, uncomplicated; E78.00 Pure hypercholesterolemia, unspecified; Z87.891 Personal history of nicotine dependence; Z88.5 Allergy status to narcotic agent; Z88.1 Allergy status to other antibiotic agents; Z79.51 Long term (current) use of inhaled steroids; Z79.899 Other long term (current) drug therapy
CPT/HCPCS: 74177; 80048; 80053; 81003; 82962; 83605; 83690; 83735; 85025; 85027; 86140; 94640; 96365; 99284; J1335; J3480; Q9967

== ENCOUNTER 2024-09-10 07:30 | Outpatient (RCR) | payer OTHER, SELFPAY ==
--- NOTE | 2024-09-05 07:38 | W.DS.TRANS ---
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
-
Discharge Instructions:
Instructions:
Stand-Alone Forms:
Changes to Home Medications: Yes
Discharge Medications:
DC Medications w/original date entered in [employer]
albuterol sulfate 90 mcg/actuation aerosol inhaler 2 puff inhalation R Q4HPRN PRN sob 01/11/21
Ertapenem [Invanz] 1,000 mg 100 mls/hr IV Q24H Gastrointestinal issue 09/04/24
esomeprazole magnesium 40 mg capsule,delayed release (Nexium) 40 mg PO DAILY Gastrointestinal issue #0 caps 09/04/24
famotidine 10 mg tablet (Pepcid AC) 10 mg PO HS Gastrointestinal issue #0 tabs 09/04/24
mometasone-formoterol HFA 200 mcg-5 mcg/actuation aerosol inhaler (Dulera) 2 puff inhalation BID Lung/breathing issues #0 grams 09/04/24
rosuvastatin 10 mg tablet 10 mg PO HS High cholesterol #0 tabs 09/04/24
Home Medication Changes
new
Ertapenem [Invanz] 1,000 mg 100 mls/hr IV Q24H Gastrointestinal issue 09/04/24
Pending Results: No
[2024-09-05 14:30] VITALS: BP 135/78
[2024-09-05] MEDS: INVANZ 60 MG IV (14:40)
[2024-09-05 15:42] VITALS: BP 132/84
[2024-09-06] MEDS: INVANZ 60 MG IV (08:37)
[2024-09-06 08:42] VITALS: BP 144/86
[2024-09-07 07:50] VITALS: BP 127/82
[2024-09-07] MEDS: INVANZ 60 MG IV (08:03)
[2024-09-08 07:55] VITALS: BP 136/81
[2024-09-08] MEDS: INVANZ 60 MG IV (08:14)
[2024-09-08 08:48] LABS: % Basophils 1.2 % (0-2); % Eosinophils 5.9 % (0-6); % Immature Granulocytes 0.4 % (0-0.5); % Lymphocytes 29.1 % (20.5-51.1); % Monocytes 8.2 % (1.7-9.3); % Neutrophils 55.2 % (42.2-75.2); Absolute Basophils 0.1 10^3/uL (0-0.2); Absolute Eosinophils 0.4 10^3/uL (0-0.7); Absolute Lymphocytes 2.1 10^3/uL (1.2-3.4); Absolute Monocytes 0.6 10^3/uL (0.1-0.6); Absolute Neutrophils 4.1 10^3/uL (1.4-6.5); Hematocrit 38.1 % (37.0-47.0); Hemoglobin 12.8 g/dL (12.0-16.0); Mean Corp Hgb Conc. 33.6 g/dL (33.0-37.0); Mean Corpuscular Hgb 28.6 pg (27.0-31.0); Mean Platelet Volume 9.5 fL (7.4-10.4); Nucleated Red Blood Cells % 0 %; Platelet Count 268 10^3/uL (130-400); Red Blood Cell Count 4.48 10^6/uL (4.20-5.40); Red Cell Dist. Width 12.6 % (11.5-14.5); White Blood Cell Count 7.4 10^3/uL (4.8-10.8)
[2024-09-08 08:50] LABS: Blood Urea Nitrogen 6 mg/dl (7-17); Calcium 9.4 mg/dl (8.4-10.2); Carbon Dioxide 24 mmol/L (22-30); Chloride 110 mmol/L (98-107); Glucose 91 mg/dl (70-99); Potassium 4.2 mmol/L (3.5-5.1); Sodium 142 mmol/L (135-145); eGFR > 60.00
[2024-09-09] MEDS: INVANZ 60 MG IV (07:25)
[2024-09-09 07:30] VITALS: BP 137/83
[2024-09-10 07:34] VITALS: BP 136/84
[2024-09-10] MEDS: INVANZ 60 MG IV (07:52)
== END 2024-09-11 15:40 | disposition home or self-care (01) ==
LOC: OID 07:30
PROVIDERS: ATTENDING PHYSICIAN Hospitalist; FAMILY PHYSICIAN Family Medicine
DX: K57.92 Diverticulitis of intestine, part unspecified, without perforation or abscess without bleeding (principal); K57.32 Diverticulitis of large intestine without perforation or abscess without bleeding (principal)
CPT/HCPCS: 36415; 80048; 85025; 96365; J1335

== ENCOUNTER → 2024-10-17 07:16 | Outpatient (REF) | payer OTHER, SELFPAY | LOC: HWRCS 07:16 | PROVIDERS: ATTENDING PHYSICIAN Internal Medicine Cardiovascular Disease; FAMILY PHYSICIAN Family Medicine | DX: R07.89 Other chest pain (principal) | CPT/HCPCS: 93306 ==

== ENCOUNTER → 2024-11-14 07:05 | Outpatient (REF) | payer OTHER, SELFPAY | LOC: HWRAD 07:05 | PROVIDERS: ATTENDING PHYSICIAN Family Medicine | DX: N28.1 Cyst of kidney, acquired (principal) | CPT/HCPCS: 76775 ==

== ENCOUNTER → 2024-11-29 06:44 | Outpatient (REF) | payer OTHER, SELFPAY | LOC: RAD 06:44 | PROVIDERS: ATTENDING PHYSICIAN Specialist; FAMILY PHYSICIAN Family Medicine | DX: R10.13 Epigastric pain (principal) | CPT/HCPCS: 74177; Q9967 ==

== ENCOUNTER 2024-11-30 12:23 | Emergency (ER) | payer OTHER, SELFPAY ==
[2024-11-30 12:29] VITALS: BP 168/90
--- NOTE | 2024-11-30 12:59 | ED.GENMED ---
History of Present Illness
<Magaly Medrano PA-C - Last Filed: 12/04/24 16:00>
General
Chief Complaint: Abdominal Pain
Source: patient
Exam Limitations: none
Time Seen by Provider: 11/30/24 12:54
History of Present Illness
History of Present Illness:
64yoF with a history of hyperlipidemia, GERD, asthma, and prior cholecystectomy presenting for evaluation of left upper abdominal pain. Symptoms have been intermittent for the past 3 weeks but are now constant. She describes a sharp pain
underneath her left breast. Pain is sometimes worse if she lays on her left side but otherwise nothing seems to make the pain better or worse. Specifically, she denies any pleuritic pain or postprandial pain. She developed lightheadedness earlier
today. She has been following up with her prenatal genetic counselor and was sent for an outpatient CT abdomen yesterday which she was told was normal. She called her hvac sales representative today due to her dizziness and was told to go to the ED for evaluation.
Echocardiogram in September 2024 showed an EF of 55 to 60%. She has a stress test scheduled for next week.
Past History
<Magaly Medrano PA-C - Last Filed: 12/04/24 16:00>
Past History
ED Past Medical History: GERD and Other (Diverticulosis, Peters's esophagus)
ED Past Surgical History: Cholecystectomy and Other (Breast reduction, colostomy)
Social History
Tobacco: Former smoker
Alcohol: Occasional
Drug: None
Personal:
Living: with family
Employment: Employed
Family History
Family History: Early CAD
Phy Exam
<Magaly Medrano PA-C - Last Filed: 12/04/24 16:00>
General Physical Exam
General Presentation: well appearing and no apparent distress
General Skin: warm and dry
General Habitus: normal
General Mental: alert
ENT Exam
ENT Exam: normocephalic
Cardiovascular Exam
Cardiovascular Exam: regular rate/rhythm and no murmur
Pulmonary Exam
Pulmonary Exam: lungs clear, no respiratory distress, no rales, no crackles, no rhonchi and no wheezing
Gastrointestinal Exam
Gastrointestinal Exam: soft, non distended and other (Mild tenderness in LUQ)
Neurological Exam
Neurological Exam: alert
Kiarra Coma Scale
Eye Opening: Spontaneous
Verbal Response: Oriented
Motor Response: Obeys Commands
GCS Total Score: 15
Skin Exam
Skin Exam: normal color and warm/dry
Psychiatric Exam
Psychiatric Exam: normal mood/affect
<Nam Prince PA-C - Last Filed: 11/30/24 22:27>
Kiarra Coma Scale
GCS Total Score: 15
Course
<Magaly Medrano PA-C - Last Filed: 12/04/24 16:00>
Orders/Labs/Results
Orders:
Orders
11/30/24 12:25
ECG [Electrocardiogram (*1)] Urgent
Reason for Study: Abdominal Pain
EKG- Treatment ONCE
11/30/24 13:11
Cardiac Monitoring- Treatment ONCE
11/30/24 14:46
Complete Blood Count/With Diff Urgent
Comprehensive Metabolic Panel Urgent
D-Dimer Urgent
Lipase Urgent
Troponin I Urgent
11/30/24 15:27
CR Chest - 2 Views Urgent
Comment:
Reason For Exam: chest pain/SOB
Abnormal Lab Results
11/30/24
14:46
Absolute Neuts (auto) 7.0 H 10^3/uL
(1.4-6.5)
Lymphocytes % 17.1 L %
(20.5-51.1)
Chloride 111 H mmol/L
(98-107)
11/30/24 14:46
11/30/24 14:46
Vital Signs
Initial and Last Documented VS:
Initial Vital Signs
Temp Pulse Resp BP Pulse Ox
98.2 F 82 16 168/90 98
11/30/24 12:29 11/30/24 12:29 11/30/24 12:29 11/30/24 12:29 11/30/24 12:29
Last Documented Vital Signs
Temp Pulse Resp BP Pulse Ox
98.2 F 66 18 168/90 98
11/30/24 12:29 11/30/24 14:49 11/30/24 16:00 11/30/24 12:29 11/30/24 12:59
<Nam Prince PA-C - Last Filed: 11/30/24 22:27>
Orders/Labs/Results
Orders:
Orders
11/30/24 12:25
ECG [Electrocardiogram (*1)] Urgent
Reason for Study: Abdominal Pain
EKG- Treatment ONCE
11/30/24 13:11
Cardiac Monitoring- Treatment ONCE
11/30/24 14:46
Complete Blood Count/With Diff Urgent
Comprehensive Metabolic Panel Urgent
D-Dimer Urgent
Lipase Urgent
Troponin I Urgent
11/30/24 15:27
CR Chest - 2 Views Urgent
Comment:
Reason For Exam: chest pain/SOB
Abnormal Lab Results
11/30/24
14:46
Absolute Neuts (auto) 7.0 H 10^3/uL
(1.4-6.5)
Lymphocytes % 17.1 L %
(20.5-51.1)
Chloride 111 H mmol/L
(98-107)
11/30/24 14:46
11/30/24 14:46
Vital Signs
Initial and Last Documented VS:
Initial Vital Signs
Temp Pulse Resp BP Pulse Ox
98.2 F 82 16 168/90 98
11/30/24 12:29 11/30/24 12:29 11/30/24 12:29 11/30/24 12:29 11/30/24 12:29
Last Documented Vital Signs
Temp Pulse Resp BP Pulse Ox
98.2 F 66 18 168/90 98
11/30/24 12:29 11/30/24 14:49 11/30/24 16:00 11/30/24 12:29 11/30/24 12:59
<Magaly Medrano PA-C - Last Filed: 12/04/24 16:00>
MDM/Problems Addressed
Differential Diagnosis Includes:
64yoF here with pain underneath L breast x 3 weeks. Has seen GI and had an outpatient CT abd yesterday without explanation of her pain. Had some lightheadedness earlier today so cardiology sent her to the ED. She is hypertensive with otherwise
normal vitals. She is well appearing in no distress. Differential diagnosis includes but is not limited to: musculoskeletal, PUD, pneumonia, less likely ACS, less likely PE, no evidence of zoster on exam
Initial ED plan: EKG from triage shows no ischemic changes. Check cardiac labs, lipase, D-dimer, and CXR vs. CT depending on D-dimer results.
<Magaly Medrano PA-C - Last Filed: 12/04/24 16:00>
*Pulse Oximetry
SaO2: 98
Oxygen Mode of Delivery: Room air
*EKG
Interpreted by ED Provider?: Yes
EKG Intrepretation Date: 11/30/24
Heart Rate: 77
Rate: normal
Rhythm: sinus
[place]: normal axis
Interval: normal interval
QRS Pattern: right bundle branch block (incomplete)
Ischemia: no ischemia
<Nam Prince PA-C - Last Filed: 11/30/24 22:27>
*Pulse Oximetry
Patient hypoxic: no
*Critical Care Note
Total Time (30-74mins, 75-104mins- exclusive of procedures): Not Applicable
<Nam Prince PA-C - Last Filed: 11/30/24 22:27>
Update Note
Update Note:
Unclear etiology to chest pain. Broad workup unremarkable, no e/o ACS, PE. Will d/c to outpt workup which includes stress test in 5d
ED Attending Note
<Magaly Medrano PA-C - Last Filed: 12/04/24 16:00>
-
Portions of this chart may have been created with voice recognition software.� Occasional wrong word or��sound alike� substitutions may have occurred due to the inherent limitations of voice recognition software.
Discharge Plan
Departure
Patient Disposition: Home (Routine Discharge)
Date of Disposition: 11/30/24
Time of Disposition: 16:05
Patient with high blood pressure during this ER visit?: No
Discharge Problem:
Atypical chest pain
Instructions: Chest pain - Discharge instructions
Prescriptions:
No Action
albuterol sulfate 1 PUFF HFA aerosol inhaler
2 puff inhalation R Q4HPRN PRN (Reason: sob)
famotidine [Pepcid AC] 10 mg Tablet
10 mg PO HS Qty: 0 0RF
esomeprazole magnesium [Nexium] 40 MG capsule,delayed release(DR/EC)
40 mg PO DAILY Qty: 0 0RF
rosuvastatin 10 mg tablet
10 mg PO HS Qty: 0 0RF
Dulera 200-5 mcg/actuation Hfa Aerosol Inhaler
2 puff INHALATION BID Qty: 0 0RF
Referrals:
Lakisha Rubalcava DO [Family Provider, Family Practice]
Interventions
Interventions:
*Risk Screen - Suicide Last Done: 11/30/24 12:29
*General Assessment Last Done: 11/30/24 14:51
*Neglect/Abuse Screening Last Done: 11/30/24 12:29
*ED- Fall Risk Assessment Last Done: 11/30/24 14:49
*ED COVID-19 Vaccine History Last Done: 11/30/24 12:29
*Nursing Disposition Last Done: 11/30/24 16:29
KN-Tzabgi-Bsrlqksesa Assessment Last Done: 11/30/24 14:47
Discharge Date and Time
Discharge Date/Time: 11/30/24 16:30
Print Language: [place]
[2024-11-30 14:53] VITALS: BMI 30.4
[2024-11-30 15:01] LABS: Hematocrit 37.0 % (37.0-47.0); Hemoglobin 12.2 g/dL (12.0-16.0); Mean Corp Hgb Conc. 33.0 g/dL (33.0-37.0); Mean Corpuscular Volume 86.0 fL (81.0-99.0); Nucleated Red Blood Cells % 0 %; Platelet Count 244 10^3/uL (130-400); Red Cell Dist. Width 13.2 % (11.5-14.5)
[2024-11-30 15:09] LABS: D-Dimer 0.35 ug/mlFEU (0.00-0.50)
[2024-11-30 15:20] LABS: Troponin I < 0.012 ng/ml
[2024-11-30 15:22] LABS: ALT (SGPT) 15 U/L (0-35); AST (SGOT) 20 U/L (14-36); Albumin 3.9 g/dl (3.5-5.0); Alkaline Phosphatase 78 U/L (38-126); Blood Urea Nitrogen 12 mg/dl (7-17); Calcium 9.2 mg/dl (8.4-10.2); Carbon Dioxide 23 mmol/L (22-30); Chloride 111 mmol/L (98-107); Estimated Creatinine Clearance 106 ml/min; Glucose 85 mg/dl (70-99); Lipase 97 U/L (23-300); Potassium 4.1 mmol/L (3.5-5.1); Sodium 139 mmol/L (135-145); Total Protein 6.7 g/dl (6.3-8.2); eGFR > 60.00
== END 2024-11-30 16:30 | disposition home or self-care (01) ==
LOC: EMR 12:23
PROVIDERS: Physician Assistant; EMERGENCY PHYSICIAN Emergency Medicine; FAMILY PHYSICIAN Family Medicine
DX: R07.89 Other chest pain (principal); E78.00 Pure hypercholesterolemia, unspecified; K21.9 Gastro-esophageal reflux disease without esophagitis; Z87.19 Personal history of other diseases of the digestive system; J45.909 Unspecified asthma, uncomplicated; Z82.49 Family history of ischemic heart disease and other diseases of the circulatory system; Z87.891 Personal history of nicotine dependence; Z90.49 Acquired absence of other specified parts of digestive tract; Z93.3 Colostomy status
CPT/HCPCS: 99283; 71046; 80053; 83690; 84484; 85025; 85379; 93005

== ENCOUNTER → 2024-12-05 07:26 | Outpatient (REF) | payer OTHER, SELFPAY | LOC: RCS 07:26 | PROVIDERS: ATTENDING PHYSICIAN Internal Medicine Cardiovascular Disease; FAMILY PHYSICIAN Family Medicine | DX: R07.89 Other chest pain (principal) | CPT/HCPCS: 93017 ==

== ENCOUNTER 2025-01-01 13:01 | Emergency (ER) | payer OTHER, SELFPAY ==
[2025-01-01 13:13] VITALS: BP 165/99
[2025-01-01 13:36] LABS: Hematocrit 39.6 % (37.0-47.0); Hemoglobin 13.1 g/dL (12.0-16.0); Mean Corp Hgb Conc. 33.1 g/dL (33.0-37.0); Mean Corpuscular Volume 86.3 fL (81.0-99.0); Nucleated Red Blood Cells % 0 %; Platelet Count 300 10^3/uL (130-400); Red Cell Dist. Width 13.1 % (11.5-14.5)
[2025-01-01 14:00] LABS: ALT (SGPT) 16 U/L (0-35); AST (SGOT) 19 U/L (14-36); Albumin 4.2 g/dl (3.5-5.0); Alkaline Phosphatase 81 U/L (38-126); Blood Urea Nitrogen 10 mg/dl (7-17); Calcium 9.0 mg/dl (8.4-10.2); Carbon Dioxide 22 mmol/L (22-30); Chloride 108 mmol/L (98-107); Glucose 116 mg/dl (70-99); Potassium 4.2 mmol/L (3.5-5.1); Sodium 136 mmol/L (135-145); Total Protein 6.8 g/dl (6.3-8.2); eGFR > 60.00
[2025-01-01 14:11] LABS: Troponin I < 0.012 ng/ml
== END 2025-01-01 15:45 | disposition left against medical advice (07) ==
LOC: EMR 13:01
PROVIDERS: EMERGENCY PHYSICIAN Student in an Organized Health Care Education/Training Program
DX: R07.9 Chest pain, unspecified (principal); Z53.21 Procedure and treatment not carried out due to patient leaving prior to being seen by health care provider
CPT/HCPCS: 80053; 84484; 85025; 93005

== ENCOUNTER 2025-01-11 06:19 | Day surgery (SDC) | payer OTHER, SELFPAY | END 2025-01-11 11:03 | disposition home or self-care (01) | LOC: GI 06:19 | PROVIDERS: ATTENDING PHYSICIAN Specialist | DX: R10.13 Epigastric pain (principal); R07.9 Chest pain, unspecified; K31.89 Other diseases of stomach and duodenum; K22.70 Barrett's esophagus without dysplasia | CPT/HCPCS: 43239; 88305; 88342 ==

== ENCOUNTER 2025-01-22 02:44 | Inpatient (IN) | payer OTHER, SELFPAY ==
[2025-01-22] VITALS (16 sets, daily range): BP systolic 110–156; BP diastolic 71–107; BMI 30.3; BMI 30.6
[2025-01-22 01:10] LABS: Hematocrit 40.0 % (37.0-47.0); Hemoglobin 13.4 g/dL (12.0-16.0); Mean Corp Hgb Conc. 33.5 g/dL (33.0-37.0); Mean Corpuscular Volume 83.9 fL (81.0-99.0); Nucleated Red Blood Cells % 0 %; Platelet Count 269 10^3/uL (130-400); Red Cell Dist. Width 13.2 % (11.5-14.5)
--- NOTE | 2025-01-22 01:23 | ED.GENMED ---
History of Present Illness
General
Chief Complaint: Heart Rate Problem
Source: patient
Time Seen by Provider: 01/22/25 00:58
History of Present Illness
History of Present Illness:
This patient is a 64-year-old female who says that around 11 PM she started to feel like her heart went 'bunkers' associated with headache, lightheadedness, and nausea. Her symptoms are now much improved. She also notes that her upper back has
felt achy persistently for the last 2 days. She denies vomiting, fever, chills, abdominal pain. Patient has been experiencing intermittent left-sided chest pain for the last few months and had a recent cardiac scan that was unremarkable. She also
had a recent endoscopy that was unchanged.
Past History
Past History
ED Past Medical History: GERD and Other (Diverticulosis, Peters's esophagus)
ED Past Surgical History: Cholecystectomy and Other (Breast reduction, colostomy)
Social History
Tobacco: Former smoker
Alcohol: Occasional
Drug: None
Personal:
Living: with family
Employment: Employed
Family History
Family History: Early CAD
Phy Exam
Physical Exam
Physical Exam:
GENERAL: Alert , in no apparent distress
EYE: pupils equal and reactive
NECK: Supple, no significant adenopathy.
ENT: o/p clr, mmm.
CARDIAC: Irregularly irregular, tachycardic
LUNGS: Clear breath sounds bilaterally, no acute respiratory distress, no wheezes rales or rhonchi
ABDOMEN: Soft, without focal tenderness, no r/g, no cvat
NEUROLOGICAL: Alert and oriented, no focal neuro deficits
SKIN: Warm and dry, skin intact.
MUSCULOSKELETAL: No edema, well perfused.
PSYCH: Normal and appropriate interaction.
Scores
[id number] Score for Afib Stroke Risk
Age in Years (65=0, 65-74=1, >/=75=2): 65-74
Sex (Female=+1): Female
Congestive Heart Failure History (Yes=+1): No
Hypertension History (Yes=+1): No
Stroke/TIA/Thromboembolism History (Yes=+2): No
Vascular Disease History (Yes=+1): No
Diabetes Mellitus (Yes=+1): No
Score: 2
Anticoagulation Recommendations: Recommend anticoagulation (as validated in nonvalvular fib)
Course
Orders/Labs/Results
Orders:
Orders
01/22/25 00:35
EKG [Electrocardiogram (*1)] Urgent
Reason for Study: Palpitations
EKG- Treatment ONCE
01/22/25 01:03
Complete Blood Count/With Diff Urgent
Comprehensive Metabolic Panel Urgent
Troponin I Urgent
01/22/25 01:19
Diltiazem 125 mg/125 ml Nss [Cardizem] 125 mg in 125 ml IV NOW
Initial dose in mg/hr, then titrate:: 5
Titrate to keep:: Heart rate 80-100 bpm
Titrate by mg/hr:: 5 mg/hr
Frequency of titrations (minutes):: 15
Maximum dose in mg/hr:: 15
Diltiazem HCl [Cardizem] 22 mg IV NOW STA
01/22/25 01:24
Apixaban [Eliquis] 5 mg PO NOW STA
Abnormal Lab Results
01/22/25
01:03
Absolute Monos (auto) 0.7 H 10^3/uL
(0.1-0.6)
Chloride 110 H mmol/L
(98-107)
Glucose 107 H mg/dl
(70-99)
01/22/25 01:03
01/22/25 01:03
Vital Signs
Initial and Last Documented VS:
Initial Vital Signs
Temp Pulse Resp BP Pulse Ox
98.5 F 86 20 144/99 95
01/22/25 00:32 01/22/25 00:32 01/22/25 00:32 01/22/25 00:32 01/22/25 00:32
Last Documented Vital Signs
Temp Pulse Resp BP Pulse Ox
98.5 F 97 16 143/100 96
01/22/25 00:32 01/22/25 01:30 01/22/25 01:30 01/22/25 01:24 01/22/25 01:30
*Pulse Oximetry
SaO2: 95
Oxygen Mode of Delivery: Room air
Patient hypoxic: no
*Critical Care Note
Total Time (30-74mins, 75-104mins- exclusive of procedures): 31
Update Note
Update Note:
Patient presents to the Emergency Department with _palpitations, lightheadedness, nausea, upper back pain
Number and Complexity of Problems Addressed at the Encounter
� Chronic conditions affecting care:
� Acute Exacerbation and/or Progression of Chronic Illness:
� Differential Diagnosis includes: But not limited to SVT, a flutter, A-fib, electrolyte disorder, ACS, etc. etc.
Amount and/or Complexity of Data to be Reviewed and Analyzed
� I performed an independent evaluation of and my interpretation is:
EKG: Read by me, A-fib with RVR, no acute ischemia
CT:
Xrays:
Laboratory Studies: Generally unremarkable
Other:
� Review of other/old records reveals: Exercise stress test November 2024 negative for ischemia. Echocardiogram September 2024 normal LV size and function, EF 55 to 60%
� Clinical information was obtained by an independent historian:
� Prescriptions/Medications Considered but not given:
� Further testing considered but not performed:
Risk of Complications and/or Morbidity or Mortality of Patient Management
� Social determinants of health affecting care:
� Discussion with other providers (PCP, Hospitalists, Consultants, etc):
� Escalation of care including admission/observation vs risk of discharge considered: 1:59 AM reassessment rate now lower at the low 100s, patient feels better. Lab workup essentially unremarkable. Given her [id number] score,
patient started on anticoagulation here. She is somewhat reluctant to consider cardioversion here, which is not unreasonable given patient has still possibility of spontaneous cardioversion, and does not regularly monitor her rate/rhythm, is not
anticoagulated, etc. Discussed with hospitalist for admission.
ED Attending Note
-
Portions of this chart may have been created with voice recognition software.� Occasional wrong word or��sound alike� substitutions may have occurred due to the inherent limitations of voice recognition software.
Discharge Plan
Departure
Patient Disposition: Admit
Date of Disposition: 01/22/25
Time of Disposition: 01:59
Admit to: Telemetry
Presentation/result/management discussed w/ accepting MD/DO: Hospitalist
Condition: Fair
Discharge Problem:
Atrial fibrillation
Prescriptions:
No Action
albuterol sulfate 1 PUFF HFA aerosol inhaler
2 puff inhalation R Q4HPRN PRN (Reason: sob)
famotidine [Pepcid AC] 10 mg Tablet
10 mg PO HS Qty: 0 0RF
esomeprazole magnesium [Nexium] 40 MG capsule,delayed release(DR/EC)
40 mg PO DAILY Qty: 0 0RF
rosuvastatin 10 mg tablet
10 mg PO HS Qty: 0 0RF
Dulera 200-5 mcg/actuation Hfa Aerosol Inhaler
2 puff INHALATION BID Qty: 0 0RF
Interventions
Interventions:
*Risk Screen - Suicide Last Done: 01/22/25 00:32
*General Assessment Last Done: 01/22/25 00:32
*Neglect/Abuse Screening Last Done: 01/22/25 00:32
*ED- Fall Risk Assessment Last Done: 01/22/25 01:37
*ED COVID-19 Vaccine History Last Done: 01/22/25 00:32
ED- Cardiac Assessment Last Done: 01/22/25 01:10
ED- Pulmonary Assessment Last Done: 01/22/25 01:10
Discharge Date and Time
Print Language: [place]
[2025-01-22] MEDS: CARDIZEM 22 MG IV (01:24)
[2025-01-22] MEDS: CARDIZEM 125 IV (01:29)
[2025-01-22] MEDS: ELIQUIS 5 MG PO ×3 (01:35→20:32)
[2025-01-22 01:38] LABS: ALT (SGPT) 17 U/L (0-35); AST (SGOT) 18 U/L (14-36); Albumin 4.2 g/dl (3.5-5.0); Alkaline Phosphatase 87 U/L (38-126); Blood Urea Nitrogen 13 mg/dl (7-17); Calcium 9.4 mg/dl (8.4-10.2); Carbon Dioxide 25 mmol/L (22-30); Chloride 110 mmol/L (98-107); Estimated Creatinine Clearance 80 ml/min; Glucose 107 mg/dl (70-99); Potassium 3.9 mmol/L (3.5-5.1); Sodium 141 mmol/L (135-145); Total Protein 6.8 g/dl (6.3-8.2); eGFR > 60.00
[2025-01-22 01:48] LABS: Troponin I < 0.012 ng/ml
--- NOTE | 2025-01-22 02:15 | HPS.HSE ---
Family Physician
-
Family Physician:
Chief Complaint
-
Tachycardia
History of Present Illness
This is a 64-year-old female with past medical history significant for asthma, GERD with Peters's esophagus, diverticulosis, hyperlipidemia who presents to the emergency department with palpitations dizziness and found heart rate to be as high as
200.
Patient reported that she was sitting down at around 10 PM laying a glass of water on a table when she started feeling palpitations. She felt lightheaded. She felt nauseous and was diaphoretic. She had back discomfort. When she checked her heart
rate it was in the high 100s to as high as 200.
Patient reports recent history of atypical chest pain which she has been evaluated with PET scan and nuclear stress test which has been negative. She also had a repeat EGD recently which showed no Peters's esophagus and she had a biopsy that is
still pending for eosinophilic esophagitis.
She denies any new medications. She denies any alcohol use. She has no prior history of hypertension, personal CAD or CHF. She does have a family history significant for CAD in father.
In the emergency department patient was afebrile, blood pressure of 138/82 with a pulse rate of 97 and oxygen saturation of 98% on room air. ECG shows atrial fibrillation at a rate of 138. No acute ischemic changes. Troponin was negative.
CBC was unremarkable, electrolytes BUN/creatinine were all in the normal range.
Medical History
Past Medical History
Past Medical History: Reports Other
Additional Past Medical History:
GERD / Peters's Esophagus
Diverticulitis
Asthma
Hyperlipidemia
Past Surgical History: Reports Other
Additional Past Surgical History:
Cholecystectomy
Sigmoidectomy
Breast Reduction
Social History
Tobacco: Former Smoker
Alcohol: Occasional
Family History
Family History: Not pertinent
Allergies / Home Medications
Allergies reflects when Allergies were last updated in [facility].
Home Medications with original date entered in [facility]
Allergy/Medication List:
Allergies
Allergy/AdvReac Type Severity Reaction Status Date / Time
codeine Allergy Intermediate severe Verified 09/01/24 13:35
constipation
levofloxacin [From Levaquin] Allergy Intermediate Unknown Verified 09/01/24 13:35
moxifloxacin [From Avelox] Allergy Intermediate Rash Verified 09/01/24 13:35
metronidazole [From Flagyl] Allergy Unknown Verified 09/01/24 13:35
shiraz inhibitor Allergy Unknown Uncoded 09/01/24 13:35
Home Medications
esomeprazole magnesium 40 mg capsule,delayed release (Nexium) 40 mg PO DAILY 02/06/13
albuterol sulfate 90 mcg/actuation aerosol inhaler 2 puff inhalation R Q4HPRN PRN sob 01/11/21
famotidine 10 mg tablet (Pepcid AC) 10 mg PO HS 09/01/24
mometasone-formoterol HFA 200 mcg-5 mcg/actuation aerosol inhaler (Dulera) 2 puff inhalation BID 09/01/24
rosuvastatin 10 mg tablet 10 mg PO HS 09/01/24
Review of Systems
-
Constitutional: Reports No Symptoms
EENT: Reports No Symptoms
Respiratory: Reports No Symptoms
Cardiac: Reports Palpitations
Abdomen/GI: Reports No Symptoms
: Reports No Symptoms
Musculoskeletal: Reports No Symptoms
Skin: Reports No Symptoms
Neurological: Reports No Symptoms
Endocrine: Reports No Symptoms
Hematologic/Lymphatic: Reports No Symptoms
Psych: Reports No Symptoms
Physical Exam
Vital Signs
Vital Signs
Temp Pulse Resp BP Pulse Ox
98.5 F 97 25 138/84 95
01/22/25 00:32 01/22/25 02:00 01/22/25 02:00 01/22/25 02:00 01/22/25 02:00
Physical Exam
General: Comfortable and Conversant
HEENT: Anicteric and Moist mucous membranes
Respiratory: Clear and Non Labored Respirations
Cardiac: S1/S2 and Regular Rhythm
GI: Soft and Tender (Mild upper regions with rebound or guarding)
Rectal: Deferred by Provider
Musculoskeletal: No Clubbing, No Cyanosis and No Edema
Skin: Warm and Dry
Neuro: Awake, Alert, Oriented and Nonfocal/grossly intact
Psych: Calm
Laboratory Results
-
01/22/25 01:03
01/22/25:03
Laboratory Results
Total Bilirubin 0.8 mg/dl (0.2-1.3) 01/22/25:
AST 18 U/L (14-36) 01/22/25:
ALT 17 U/L (0-35) 01/22/25:
Alkaline Phosphatase 87 U/L (38-126) 01/22/25 01:03
Troponin I < 0.012 ng/ml 01/22/25 01:03
Data Reviewed
-
Medical Tests (Nuc Med, Echo, EKG etc): Image Personally Visualized and interpreted
Lab Data: Labs Reviewed by me
Old Records: Reviewed
Impression/Plan
-
IMPRESSION:
64-year-old female with past medical history of GERD and Peters's of esophagus status post recent endoscopy who presents to the emergency department with tachycardia and was found to be in new onset atrial fibrillation.
PLAN:
New onset atrial fibrillation with rapid ventricular response
- admit to ivu
- continue diltiazem gtt
- [id number] = 1, ac appropriate if no significant risk. Started AC in ED, cardiology to determine continuation
- she is s/p egd recently without ulcers or bleed. Known barretts
- continue ppi and H2 blockade
- bnp, echo in am
- acute onset based on symptoms at 10pm today but she has been having chest discomfort for weeks, will not cardiovert w/o ruling out thrombus. NPO for now
- cardiology consult
Code status - Full Code
--- NOTE | 2025-01-22 06:25 | PTCARENOTE ---
Received pt from ED via stretcher into room 6801. Pt ambulated self to bed w/out difficulty. denies any dizziness. Tele monitor applied pt Afib. HR in the 90's at rest. When pt ambulates to the bathroom HR goes up to about 150's. Denies any SOB.
Educated pt about Afib, packet given. Pt AAOx3 and can make needs known. Oriented to room, call blanco within reach.
[2025-01-22 07:04] LABS: Blood Urea Nitrogen 15 mg/dl (7-17); Calcium 9.4 mg/dl (8.4-10.2); Carbon Dioxide 23 mmol/L (22-30); Chloride 111 mmol/L (98-107); Estimated Creatinine Clearance 103 ml/min; Glucose 105 mg/dl (70-99); HDL Cholesterol 94 mg/dl; LDL Cholesterol, Calculated 110 mg/dl; Magnesium 1.9 mg/dl (1.6-2.3); Potassium 4.0 mmol/L (3.5-5.1); Sodium 139 mmol/L (135-145); Very Low Density Lipoprotein 20 mg/dl (0-30); eGFR > 60.00
--- NOTE | 2025-01-22 07:19 | W.PN.HOSP.TC ---
Today's Communication/Plan
-
follow up Cardiology recommendations
Assessment / Plan
Assessment / Plan
IMPRESSION:
64-year-old female with past medical history of GERD and Peters's of esophagus status post recent endoscopy who presents to the emergency department with tachycardia and was found to be in new onset atrial fibrillation.
PLAN:
New onset atrial fibrillation with rapid ventricular response
- admitted to ivu
- continue diltiazem gtt
- [id number] = 1, with possible cardioversion; continue Eliquis
- she is s/p egd recently without ulcers or bleed. Known barretts
- continue ppi and H2 blockade
- TTE
- acute onset based on symptoms at 10pm today but she has been having chest discomfort for weeks, avoided cardioversion in ER w/o ruling out thrombus. NPO for now
- cardiology consult
Code status - Full Code
Anticipated Discharge: 24 - 48 hours
Subjective/Interval History
-
Date of Service: January 22, 2025
continues to have palpitations, HR increases with any exertion
Objective Data
-
Labs:
Laboratory Results
01/22/25 01/22/25
01:03 06:16
WBC 9.4
Hgb 13.4
Hct 40.0
Plt Count 269
Sodium 141 139
Potassium 3.9 4.0
Chloride 110 H 111 H
Carbon Dioxide 25 23
BUN 13 15
Creatinine 0.8 0.6
Glucose 107 H 105 H
Calcium 9.4 9.4
Total Bilirubin 0.8
AST 18
ALT 17
Alkaline Phosphatase 87
Vital Signs:
Vital Signs
Temp Pulse Resp BP Pulse Ox
98.2 F 94 18 156/100 97
01/22/25 03:21 01/22/25 05:00 01/22/25 03:21 01/22/25 03:21 01/22/25 03:30
Review of Systems
-
History Source: Patient
All other systems: Reviewed and negative
Physical Exam
-
General: No Apparent Distress
HEENT: PERRLA
Respiratory: Clear to Auscultation; Negative Wheezes
Cardiac: S1/S2, Irregular Rhythm and Tachycardic
GI: Soft and Nontender
Musculoskeletal: No Edema
Skin: Warm and Dry; Negative Rash
Neuro: AO x 3
Psych: Calm
Data Reviewed
-
Diagnostic Radiology: Report Reviewed by me
Labs: Labs Reviewed by me
[2025-01-22] MEDS: SYMBICORT 160/4.5 MCG INHALER 2 PUFF INH ×2 (07:22→20:08)
--- NOTE | 2025-01-22 08:00 | PTCARENOTE ---
received patient from previous RN at change of shift. Pt AAOX3, ambulating without difficulty. afib on telemetry heart rate in 90s at rest, with activity heart rate increases. cardizem gtt per orders. pt on room air, lung sounds clear. active bowel
sounds. voiding without difficulty. pt updated on plan of care. pt NPO until cardiology sees patient. see worklist for full nursing assessment.
[2025-01-22] MEDS: PROTONIX 40 MG PO (08:13)
--- NOTE | 2025-01-22 09:00 | PTCARENOTE ---
pt converted to NSR at 0837, heart rate 70-80s.
--- NOTE | 2025-01-22 10:53 | CON.CAR ---
Consultation
Consultation Request
Date/Time Consultation Requested: 01/22/2025, 0320
Date/Time Consultation Performed: 01/22/2025, 929
Requesting Provider: Pete
Performing Provider: Jamison
Reason for Consultation: AF
Medical History
-
Chief Complaint: Palpitations
History of Present Illness:
Patient is a pleasant 64-year-old female with past medical history significant for palpitations, carotid atherosclerosis, dyslipidemia, GERD, back pain, anxiety/panic, depression, hypertension, chest pain, alcohol use disorder who presents with
palpitations and chest pain. In discussion with patient, she felt well until 10 PM prior to admission when she began to feel racing palpitations. She noted intermittent sharp chest pain. She also noted associated palpitations, shortness of breath
associated with palpitations. Patient was diagnosed atrial fibrillation. Patient was started on rate controlling agents which improved the discomfort/palpitations however did not alleviate them completely. Patient had spontaneous return of sinus
rhythm at 837 on 01/22/2025 while on diltiazem gtt. Patient started on Eliquis for oral anticoagulation. Patient is a non-smoker, social alcohol/alcohol use dependence, no illicits. Patient is a positive family history of heart disease.
Past Medical History
Past Medical History: Other (See HPI)
Past Surgical History: Other (Breast reduction, gallbladder surgery, colectomy, tooth extraction)
Social History
Tobacco: Former Smoker
Alcohol: Other (Social)
Drug: None
Family History
Family History: CAD and Hypertension
Allergies / Home Medications
Allergy/AdvReac Type Severity Reaction Status Date / Time
MOSES Inhibitors Allergy Unknown Verified 01/22/25 00:43
levofloxacin (From Levaquin) Allergy Unknown Verified 01/22/25 00:43
metronidazole (From Flagyl) Allergy Unknown Verified 01/22/25 00:43
moxifloxacin (From Avelox) Allergy Rash Verified 01/22/25 00:43
codeine AdvReac severe Verified 01/22/25 00:43
constipation
�Medication �Instructions �Recorded �Confirmed �Type
albuterol sulfate 90 mcg/actuation 2 puff inhalation R Q4HPRN PRN sob 01/11/21 01/22/25 History
aerosol inhaler
esomeprazole magnesium 40 mg 40 mg PO DAILY Gastrointestinal 09/04/24 01/22/25 Rx
capsule,delayed release (Nexium) issue #0 caps
famotidine 10 mg tablet (Pepcid AC) 10 mg PO HS Gastrointestinal issue 09/04/24 01/22/25 Rx
#0 tabs
mometasone-formoterol HFA 200 2 puff inhalation BID 09/04/24 01/22/25 Rx
mcg-5 mcg/actuation aerosol Lung/breathing issues #0 grams
inhaler (Dulera)
rosuvastatin 10 mg tablet 10 mg PO HS High cholesterol #0 09/04/24 01/22/25 Rx
tabs
Review of Systems
-
History Source: Patient
All other systems: Negative unless noted
Constitutional: No Symptoms
EENT: No Symptoms
Respiratory: Trouble Breathing
Cardiac: Chest Pain and Palpitations
Abdomen/GI: No Symptoms
: No Symptoms
Musculoskeletal: No Symptoms
Skin: No Symptoms
Neurological: No Symptoms
Endocrine: No Symptoms
Hematologic/Lymphatic: No Symptoms
Physical Exam
Vital Signs
Temp Pulse Resp BP Pulse Ox
97.3 F 74 18 117/80 97
01/22/25 08:00 01/22/25 10:00 01/22/25 08:00 01/22/25 08:03 01/22/25 08:00
Physical exam:
GENERAL: no acute distress
EYE: sclera anicteric
NECK: Supple, no JVD, no carotid bruit appreciated
ENT: normal nose, moist mucosal membranes
CARDIAC: Regular rate and rhythm, +S1/S2, no murmur, rubs, or gallops
CHEST/PULMONARY: Normal effort, clear breath sounds
ABDOMEN: Soft, without focal tenderness or distention
NEUROLOGICAL: Alert and oriented x3
SKIN: Warm and dry, no rash
PSYCH: Normal and appropriate interaction.
Lab Results
01/22/25 01:03
01/22/25 06:16
Troponin I < 0.012 ng/ml 01/22/25 01:03
Lzg-V-Aosljljszfh Pept 342 pg/ml 01/22/25 06:16
Impression / Plan
-
PCP: Dr Lakisha Rubalcava
Bumboater: Dr Nicolette Dyson
Impression:
Atrial fibrillation, paroxysmal, symptomatic
� Noted symptoms including palpitations, shortness of breath
� [id number]: 3 (age, hypertension, gender). Started on Eliquis 5 mg twice daily for stroke risk reduction
� Currently on diltiazem drip for rate control
Chest pain, atypical, noncardiac
Hypertension
Dyslipidemia
Anxiety/panic
GERD
Carotid atherosclerosis
Mitral valve prolapse
Alcohol use disorder
Former smoker
Family history of heart disease
PET/CT myocardial perfusion imaging, 01/02/2025: Normal myocardial perfusion, no evidence of ischemia. EF greater than 70%
Echo, 10/17/2024: Normal LV size and function, EF 55 to 60%, no significant valvular disease
Recommendations:
� Start metoprolol succinate 25 mg daily and wean Cardizem drip
� Replete electrolytes for goal potassium greater than 4, magnesium greater than 2
� Monitor on telemetry
� Continue oral anticoagulation for stroke risk reduction
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
� Strongly encourage alcohol reduction
Data Reviewed
-
EKG: Tracing Personally Visualized and interpreted
Radiology: Report Reviewed by me
CT Scan: Report Reviewed by me
Medical Tests (Nuc Med, Echo etc): Report Reviewed by me
Labs: Labs Reviewed by me
Old Records: Reviewed
[2025-01-22] MEDS: TOPROL XL 25 MG PO (12:02)
--- NOTE | 2025-01-22 14:02 | W.DCSUMMARY ---
Discharge Summary
Discharge Data
Date of Admission: 01/22/25
Date of Discharge: 01/23/25
-
Pending Results: No
Hospital Course
Discharging Physician : Dr. Sujata Cuhrch
Disposition : Home
Primary care physician : Dr. Lakisha Rubalcava
Principal Discharge diagnosis : Atrial Fibrillation with Rapid Ventricular Response
Hospital Course :
Ms. Ruth Gupta is a 64 yo woman with hx GERD, Peters's esophagus, HTN presents to the ER with palpitations and intermittent chest discomfort/indigestion.
In the emergency department patient was afebrile, blood pressure of 138/82 with a pulse rate of 97 and oxygen saturation of 98% on room air. ECG shows atrial fibrillation at a rate of 138. No acute ischemic changes. Troponin was negative. TSH
3.94.
She was started on an IV Diltiazem gtt and admitted to the IVU. CHADS2-Vasc score 3 (age, female, hx HTN), she was started on Eliquis. The following morning patient converted to sinus rhythm. She was transitioned from IV Diltiazem gtt to oral
Metoprolol. Patient recently had an echocardiogram in September, results below.
Patient will be discharged on new medications: Metoprolol XL 25mg PO QD and Eliquis 5mg PO BID. She has follow up with Cardiology and PCP.
Time spent on discharge was 31 minutes.
Important imaging findings :
TTE 10/17/24
CONCLUSIONS
Normal left ventricular size and systolic function.
LV ejection fraction is 55-60% .
No significant valve abnormalities
Compared to the previous report from 07/14/2021 no clear mitral valve prolapse
is appreciated. Previously mild posterior leaflet prolapse was reported.
Procedure findings :
Discharge Plan
-
Patient Disposition: Home (Routine Discharge)
Discharge Diagnosis/Procedures: atrial fibrillation with rapid ventricular rate
Diet: Regular
Activity: As tolerated
Driving Restrictions: As prior to admission
Bathing Restrictions: None
Instructions: Atrial Fibrillation (DC), Apixaban
Referrals:
Lakisha Rubalcava DO [Family Provider, Family Practice] - in less than 1 week
Jessica Steiner CRNP [Specified Professional Personl, Cardiology] - 02/20/25 2:40 pm
Referral Note: You have a cardiology follow-up appointment at the [place] office with Dr. Dyson's nurse practitioner, Jessica. Please call with questions
Additional Discharge Medication Instructions: You are newly started on Metoprolol to help heart rates if you go back into atrial fibrillation
You are newly started on Eliquis for stroke prevention in the setting of atrial fibrillation
Prescriptions:
New
metoprolol succinate 25 mg Tablet Extended Release 24 Hr
25 mg PO DAILY Qty: 30 1RF
Eliquis 5 mg Tablet
5 mg PO BID Qty: 60 2RF
Continued
albuterol sulfate 1 PUFF HFA aerosol inhaler
2 puff inhalation R Q4HPRN PRN (Reason: sob)
famotidine [Pepcid AC] 10 mg Tablet
10 mg PO HS Qty: 0 0RF
esomeprazole magnesium [Nexium] 40 MG capsule,delayed release(DR/EC)
40 mg PO DAILY Qty: 0 0RF
rosuvastatin 10 mg tablet
10 mg PO HS Qty: 0 0RF
Dulera 200-5 mcg/actuation Hfa Aerosol Inhaler
2 puff INHALATION BID Qty: 0 0RF
Discharge Orders:
Discharge Patient (As Directed); Ordered 01/23/25
Ordered By: Sujata Church
Care Plan Goals
Care Plan Goals:
Problem: Readiness for enhanced knowledge related to diagnosis and treatment plan
Goal: Understand your diagnosis and treatment plan needs, including medications if applicable.
Instructions: Know your diagnosis, underlying causes and treatment plan options, including medications if applicable. Consult with your health care team to learn about your diagnosis and treatment plan, including medications if applicable.
Discharge Date and Time
Print Language: LUXEMBOURGISH
--- NOTE | 2025-01-22 18:25 | PTCARENOTE ---
unable to do epsom salt soak for toe due to no epsom salt in hospital- contacted [facility], pharmacy, intelligence group supervisor. asked pt if could bring in supplies from home
[2025-01-22] MEDS: CRESTOR 10 MG PO (22:15)
[2025-01-22] MEDS: PEPCID 10 MG PO (22:15)
--- NOTE | 2025-01-23 01:46 | PTCARENOTE ---
Pt. remains in NSR this shift, no complaints of chest pain/discomfort. Resting quietly.
[2025-01-23 02:12] VITALS: BP 133/88
[2025-01-23 02:14] VITALS: BMI 30.2
[2025-01-23 02:50] LABS: Blood Urea Nitrogen 17 mg/dl (7-17); Calcium 9.3 mg/dl (8.4-10.2); Carbon Dioxide 23 mmol/L (22-30); Chloride 108 mmol/L (98-107); Estimated Creatinine Clearance 88 ml/min; Glucose 104 mg/dl (70-99); Magnesium 1.8 mg/dl (1.6-2.3); Potassium 4.2 mmol/L (3.5-5.1); Sodium 137 mmol/L (135-145); eGFR > 60.00
[2025-01-23 07:28] VITALS: BP 105/71
[2025-01-23] MEDS: SYMBICORT 160/4.5 MCG INHALER 2 PUFF INH (07:31)
--- NOTE | 2025-01-23 07:40 | W.PN.HOSP.TC ---
Today's Communication/Plan
-
follow up further Cardiology recommendations, possible DC today
Assessment / Plan
Assessment / Plan
IMPRESSION:
64-year-old female with past medical history of GERD and Peters's of esophagus status post recent endoscopy who presents to the emergency department with tachycardia and was found to be in new onset atrial fibrillation.
PLAN:
New onset atrial fibrillation with rapid ventricular response
- admitted to ivu
- s/p diltiazem gtt; converted to sinus rhythm morning 01/22 and remains in sinus this AM
- [id number] = 3 (age, female, hx HTN)
- continue Eliquis
- she is s/p egd recently without ulcers or bleed. Known barretts
- continue ppi and H2 blockade
- TTE today
- continue new start Metoprolol
- appreciate Cardiology consult
Code status - Full Code
Anticipated Discharge: Within 24 hours
Subjective/Interval History
-
Date of Service: January 23, 2025
she has remained in sinus rhythm and feels better but overwhelmed with afib diagnosis
Objective Data
-
Labs:
Laboratory Results
01/23/25
02:21
Sodium 137
Potassium 4.2
Chloride 108 H
Carbon Dioxide 23
BUN 17
Creatinine 0.7
Glucose 104 H
Calcium 9.3
Vital Signs:
Vital Signs
Temp Pulse Resp BP Pulse Ox
97.8 F 84 15 133/88 95
01/23/25 07:28 01/23/25 07:37 01/23/25 07:37 01/23/25 02:12 01/23/25 07:37
I&O
01/22/25 01/23/25 01/24/25
06:59 06:59 06:59
Intake Total 1440 / 1440
Balance 1440 / 1440
Review of Systems
-
History Source: Patient
All other systems: Reviewed and negative
Physical Exam
-
General: No Apparent Distress
HEENT: PERRLA
Respiratory: Clear to Auscultation; Negative Wheezes
Cardiac: Regular Rhythm and S1/S2
GI: Soft and Nontender
Musculoskeletal: No Edema
Skin: Warm and Dry; Negative Rash
Neuro: AO x 3
Psych: Calm
Data Reviewed
-
Diagnostic Radiology: Report Reviewed by me
Labs: Labs Reviewed by me
--- NOTE | 2025-01-23 07:50 | PTCARENOTE ---
Assumed care of pt from prev nsg shift; Pt AAOx3 w/no c/o CP or SOB. Pt's VSS w/HR in the 70's & BP 105/71 this AM. Pt is SR on telemetry monitoring. Pt anticipating D/C today. Addtl education re: Jose mgt discussed w/pt. Pt w/call blanco within reach
& plan of care ongoing.
--- NOTE | 2025-01-23 09:50 | CM ---
Pricing on Eliquis 5mg BID through [employer] is $15 for a 30 day supply.
--- NOTE | 2025-01-23 10:00 | W.PN.CARDCBS ---
Addendum entered and electronically signed by Rohith Gonzalez MD 01/23/25 10:13:
I saw and examined the patient.
The GUIDE CRUISE or PA's note was reviewed and I agree with the note.
Comment: General: Well developed, well nourished in NAD.
Neck: Supple, no JVD, HJR, carotids +2 B/L, no bruits bilaterally.
Heart: Non displaced PMI, RRR, no murmurs, No S3, S4, no rubs.
Lungs: Clear to auscultation bilaterally, no wheeze, rhonchi, rubs bilaterally,
normal expiratory phase.
Extremities: No clubbing, cyanosis or edema bilaterally.
Neuro: Grossly nonfocal, awake, alert and oriented x3.
Stable cardiology status for discharge. Remains in sinus rhythm. Discussed with patient in detail. Follow-up arranged. Discussed with primary service
Original Note:
Today's Communication / Plan
-
Maintaining sinus rhythm
Continue Toprol 25 mg daily, Eliquis 5 mg twice daily
Outpatient cardiac follow-up arranged. Okay for discharge today from cardiac standpoint
Impression / Plan
-
PCP: Dr Lakisha Rubalcava
[address] Drive: Dr Nicolette Dyson
Impression:
Atrial fibrillation, paroxysmal, symptomatic
� Noted symptoms including palpitations, shortness of breath
� [id number]: 3 (age, hypertension, gender). Started on Eliquis 5 mg twice daily for stroke risk reduction
� Currently on diltiazem drip for rate control
Chest pain, atypical, noncardiac
Hypertension
Dyslipidemia
Anxiety/panic
GERD
Carotid atherosclerosis
Mitral valve prolapse
Alcohol use disorder
Former smoker
Family history of heart disease
PET/CT myocardial perfusion imaging, 01/02/2025: Normal myocardial perfusion, no evidence of ischemia. EF greater than 70%
Echo, 10/17/2024: Normal LV size and function, EF 55 to 60%, no significant valvular disease
Recommendations:
- She presented with atrial fibrillation with RVR, new diagnosis for patient. She was started on IV Cardizem and spontaneously converted to sinus rhythm around 830 on 01/22. She has remained in sinus rhythm since that time
- Continue Toprol 25 mg daily started this admission
- Continue Eliquis 5 mg twice daily started this admission. [id number] score is 3
- Echo is ordered, however just had recent echo 10/17/2024, so likely not needed
- TSH within normal limits
-Will arrange outpatient cardiac follow-up
-Discussed ablation with patient today in broad strokes
-Discussed alcohol reduction/avoidance as may be trigger for patient
Progress Note - [address]
Subjective
Date of Service: January 23, 2025
No present symptoms
Objective
Labs:
01/22/25 01:03
01/23/25 02:21
Labs
Hgb 13.4 g/dL (12.0-16.0) 01/22/25 01:03
Hct 40.0 % (37.0-47.0) 01/22/25 01:03
Plt Count 269 10^3/uL (130-400) 01/22/25 01:03
Sodium 137 mmol/L (135-145) 01/23/25 02:21
Potassium 4.2 mmol/L (3.5-5.1) 01/23/25 02:21
BUN 17 mg/dl (7-17) 01/23/25 02:21
Creatinine 0.7 mg/dL (0.6-1.0) 01/23/25 02:21
Glucose 104 mg/dl (70-99) H 01/23/25 02:21
Troponins
01/22/25
01:03
Troponin I < 0.012
Vital Signs and I&O:
Vital Signs
Temp Pulse Resp BP Pulse Ox
97.8 F 84 15 105/71 95
01/23/25 07:28 01/23/25 08:00 01/23/25 07:37 01/23/25 07:28 01/23/25 07:37
Vital Signs
Temp Pulse Resp BP Pulse Ox
97.8 F 84 15 105/71 95
01/23/25 07:28 01/23/25 08:00 01/23/25 07:37 01/23/25 07:28 01/23/25 07:37
Intake & Output
01/21/25 01/22/25 01/23/25 01/24/25
07:59 07:59 07:59 07:59
Intake Total 1440 / 1440
Balance 1440 / 1440
Physical Exam
Physical Exam
GEN: No distress, awake, alert, oriented x3
HEENT: supple, anicteric, mmm, EOMI
LUNGS: CTA bilaterally, no wheezes/rales
CV: Reg, S1/S2, no murmur
ABD: soft, BS+, NT/ND
EXT: No cyanosis, clubbing, edema
NEURO: Gross non-focal
SKIN: Warm, pink, dry. No rash
[2025-01-23] MEDS: ELIQUIS 5 MG PO (10:10)
[2025-01-23] MEDS: PROTONIX 40 MG PO (10:10)
[2025-01-23] MEDS: TOPROL XL 25 MG PO (10:11)
--- NOTE | 2025-01-23 11:11 | CM ---
Chart reviewed. Patient is independent of ADLS, lives with her in a [address], 2 [address], 0 [address]ME. Plan is for the patient to return home.
[2025-01-23 11:39] VITALS: BP 119/78
--- NOTE | 2025-01-23 14:50 | PTCARENOTE ---
Pt's IV line D/C'd & monitoring coordinator removed. Discussed Afib book, CHF book, & D/C instructions w/pt. Pt escorted out by transport to ED where her car was. Pt allowed to drive herself home. Pt left w/persona belongings incvlu cell phone & cash controller.
== END 2025-01-23 14:55 | disposition home or self-care (01) | DRG 310 ==
LOC: IVU 02:44
PROVIDERS: ADMITTING PHYSICIAN Internal Medicine; ATTENDING PHYSICIAN Student in an Organized Health Care Education/Training Program; EMERGENCY PHYSICIAN Emergency Medicine; FAMILY PHYSICIAN Family Medicine; OTHER PHYSICIAN Internal Medicine Cardiovascular Disease
DX: I48.0 Paroxysmal atrial fibrillation (principal); I10 Essential (primary) hypertension; K21.9 Gastro-esophageal reflux disease without esophagitis; K22.70 Barrett's esophagus without dysplasia; J45.909 Unspecified asthma, uncomplicated; E78.5 Hyperlipidemia, unspecified; Z82.49 Family history of ischemic heart disease and other diseases of the circulatory system; I25.10 Atherosclerotic heart disease of native coronary artery without angina pectoris; Z87.891 Personal history of nicotine dependence; Z88.5 Allergy status to narcotic agent; Z88.8 Allergy status to other drugs, medicaments and biological substances; Z88.1 Allergy status to other antibiotic agents; Z88.3 Allergy status to other anti-infective agents; F41.9 Anxiety disorder, unspecified; F10.10 Alcohol abuse, uncomplicated; I65.29 Occlusion and stenosis of unspecified carotid artery; Z93.3 Colostomy status; F32.A Depression, unspecified
CPT/HCPCS: 80048; 80053; 80061; 83735; 83880; 84443; 84484; 85025; 93005; 94640; 96374; 99291

== ENCOUNTER → 2025-03-09 07:58 | Outpatient (REF) | payer OTHER, SELFPAY | LOC: WDC 07:58 | PROVIDERS: ATTENDING PHYSICIAN Obstetrics & Gynecology; FAMILY PHYSICIAN Family Medicine | DX: Z12.31 Encounter for screening mammogram for malignant neoplasm of breast (principal) | CPT/HCPCS: 77063; 77067 ==

== ENCOUNTER → 2025-03-29 14:05 | Outpatient (REF) | payer OTHER, SELFPAY | LOC: DHSLP 14:05 | PROVIDERS: ATTENDING PHYSICIAN Nurse Practitioner; FAMILY PHYSICIAN Family Medicine | DX: G47.33 Obstructive sleep apnea (adult) (pediatric) (principal) | CPT/HCPCS: 95800 ==

== ENCOUNTER → 2025-04-03 07:35 | Outpatient (REF) | payer OTHER, SELFPAY | LOC: RAD 07:35 | PROVIDERS: ATTENDING PHYSICIAN Family Medicine | DX: N95.1 Menopausal and female climacteric states (principal) | CPT/HCPCS: 77080 ==

== ENCOUNTER → 2025-05-01 08:21 | Outpatient (REF) | payer OTHER, SELFPAY | LOC: HWRAD 08:21 | PROVIDERS: ATTENDING PHYSICIAN Obstetrics & Gynecology; FAMILY PHYSICIAN Family Medicine | DX: R19.09 Other intra-abdominal and pelvic swelling, mass and lump (principal) | CPT/HCPCS: 76830; 76856 ==